=== PATIENT | male | born 1935 | race Caucasian/White ===

== ENCOUNTER 2016-11-21 15:19 | Outpatient (CLI) | payer MEDICARE, OTHER | END 2016-11-21 15:20 | disposition home or self-care (01) | DX: E11.9 Type 2 diabetes mellitus without complications (principal) ==

== ENCOUNTER 2017-01-18 15:04 | Outpatient (CLI) | payer MEDICARE, OTHER | END 2017-01-18 15:05 | disposition home or self-care (01) | LOC: RT 15:04 | PROVIDERS: ATTEND Internal Medicine Cardiovascular Disease | DX: I25.10 Atherosclerotic heart disease of native coronary artery without angina pectoris (principal); I50.9 Heart failure, unspecified; I49.9 Cardiac arrhythmia, unspecified | CPT/HCPCS: 93005 ==

== ENCOUNTER 2017-01-31 12:33 | Outpatient (CLI) | payer MEDICARE, OTHER | END 2017-01-31 12:34 | disposition home or self-care (01) | LOC: DI 12:33 | PROVIDERS: ATTEND Internal Medicine Cardiovascular Disease | DX: I50.9 Heart failure, unspecified (principal); Z95.0 Presence of cardiac pacemaker | CPT/HCPCS: 93306 ==

== ENCOUNTER 2017-06-19 08:26 | Outpatient (CLI) | payer MEDICARE, OTHER ==
[2017-06-19 08:53] LABS: BASOPHILS # (AUTO) 0.1 10^3/uL (0.0-0.1); BILIRUBIN,URINE NEGATIVE (NEGATIVE); EOSINOPHILS # (AUTO) 0.4 10^3/uL (0.0-0.7); EOSINOPHILS % (AUTO) 4.7 %; GLUCOSE, URINE (UA) NEGATIVE (NEGATIVE); HGB - HEMOGLOBIN 13.2 g/dL (14.0-18.0); KETONES,URINE (UA) NEGATIVE (NEGATIVE); LEUKOCYTE ESTERASE, URINE NEGATIVE (NEGATIVE); LYMPHOCYTES # (AUTO) 1.2 10^3/uL (1.5-3.5); LYMPHOCYTES % (AUTO) 15.2 %; MEAN CORPUSCULAR HEMOGLOBIN 31.3 pg (27.0-31.0); MEAN CORPUSCULAR HGB CONC 34.1 g/dL (32.0-36.0); MEAN CORPUSCULAR VOLUME 91.9 fL (80.0-94.0); MEAN PLATELET VOLUME 7.1 fL (7.4-11.4); MONOCYTES # (AUTO) 0.7 10^3/uL (0.0-1.0); MONOCYTES % (AUTO) 8.3 %; NEUTROPHILS # (AUTO) 5.7 10^3/uL (1.5-6.6); NEUTROPHILS % (AUTO) 70.8 %; NITRITE,URINE NEGATIVE (NEGATIVE); OCCULT BLOOD,URINE NEGATIVE (NEGATIVE); PLT - PLATELET COUNT 177 10^3/uL (130-450); PROTEIN,URINE NEGATIVE (NEGATIVE); RED BLOOD COUNT 4.23 10^6/uL (4.70-6.10); RED CELL DISTRIBUTION WIDTH 13.9 % (12.0-15.0); UROBILINOGEN,URINE 0.2 (NORMAL) E.U./dL (NORMAL); WHITE BLOOD COUNT 8.1 x10^3/uL (4.8-10.8)
[2017-06-19 08:55] LABS: CLARITY,URINE CLEAR (CLEAR)
[2017-06-19 09:05] LABS: BACTERIA,URINE Rare /HPF (None Seen); RBC,URINE 0-5 /HPF (0-5); SQUAMOUS EPITHELIAL CELL,UR NONE SEEN (<= Few)
[2017-06-19 09:18] LABS: % IRON SATURATION 16 % (20-50); ALBUMIN 4.3 g/dL (3.2-5.5); ALBUMIN/GLOBULIN RATIO 1.3 (1.0-2.2); ALKALINE PHOSPHATASE 48 IU/L (42-121); ALT ALANINE AMINOTRANSFERASE 25 IU/L (10-60); AST ASPARTATE AMINOTRANSFERASE 23 IU/L (10-42); BILIRUBIN,TOTAL 0.9 mg/dL (0.2-1.0); BUN - BLOOD UREA NITROGEN 41 mg/dL (6-20); CARBON DIOXIDE - CO2 27 mmol/L (21-32); CHLORIDE 103 mmol/L (101-111); CHOL/HDL RATIO 3.7 (<5.0); CHOLESTEROL 133 mg/dL; CREATININE 2.1 mg/dL (0.6-1.2); GFR - MDRD 30 (>89); GLUCOSE 105 mg/dL (70-100); HB2 TOTAL 14.5 g/dL; HDL CHOLESTEROL 36 mg/dL; HEMOGLOBIN A1C 0.99 g/dL; HEMOGLOBIN A1C % 8.4 % (4.6-6.2); IRON 54 ug/dL (45-182); LDL CHOLESTEROL,CALCULATED 77 mg/dL; LDL/HDL RATIO 2.1 (<3.6); SODIUM 139 mmol/L (135-145); TOTAL IRON BINDING CAPACITY 347 ug/dL (250-450); TOTAL PROTEIN 7.6 g/dL (6.7-8.2); TRANSFERRIN 248 mg/dL (180-329); VLDL CHOLESTEROL 20 mg/dL
[2017-06-19 09:29] LABS: THYROID STIMULATING HORMONE 1.85 uIU/mL (0.34-5.60)
[2017-06-19 09:35] LABS: FERRITIN 68.1 ng/mL (23.9-336.2)
== END 2017-06-19 08:27 | disposition home or self-care (01) ==
LOC: LAB 08:26
PROVIDERS: ATTEND Internal Medicine
DX: I13.0 Hypertensive heart and chronic kidney disease with heart failure and stage 1 through stage 4 chronic kidney disease, or unspecified chronic kidney disease (principal); Z79.899 Other long term (current) drug therapy; I48.92 Unspecified atrial flutter; I50.9 Heart failure, unspecified; H26.9 Unspecified cataract; I25.10 Atherosclerotic heart disease of native coronary artery without angina pectoris; E11.22 Type 2 diabetes mellitus with diabetic chronic kidney disease; N18.9 Chronic kidney disease, unspecified; R80.9 Proteinuria, unspecified; M72.0 Palmar fascial fibromatosis [Dupuytren]; E78.3 Hyperchylomicronemia; D50.9 Iron deficiency anemia, unspecified
CPT/HCPCS: 36415; 80053; 80061; 81001; 82728; 83036; 83540; 83721; 83880; 84443; 84466; 85025; 87086

== ENCOUNTER 2017-08-13 15:29 | Outpatient (CLI) | payer MEDICARE, OTHER ==
--- NOTE | 2017-08-13 17:42 | XRAY Report ---
LUMBAR SPINE, THREE VIEWS: 08/13/2017 HISTORY: Back pain. COMPARISON: None. FINDINGS: There is a very subtle lumbar dextroscoliosis. There is loss of the normal lumbar lordosis. No definite anterolisthesis or retrolisthesis. Vertebral body heights are well maintained. There is multilevel degenerative disk space narrowing in the lumbar spine from L1 through S1. Facet joint arthropathy present. Vascular calcification noted. IMPRESSION: MULTILEVEL DEGENERATIVE DISK DISEASE LUMBAR SPINE. LUMBAR SPINAL STENOSIS IS LIKELY PRESENT, BUT COULD BE BETTER ASSESSED BY CT OR MRI. TD: 08/13/2017 17:41 DANIEL
== END 2017-08-13 15:30 | disposition home or self-care (01) ==
LOC: DI 15:29
PROVIDERS: ATTEND Internal Medicine
DX: M51.36 Other intervertebral disc degeneration, lumbar region (principal); M47.896 Other spondylosis, lumbar region
CPT/HCPCS: 72100

== ENCOUNTER 2017-08-20 17:11 | Outpatient (CLI) | payer MEDICARE, OTHER ==
--- NOTE | 2017-08-21 10:04 | XRAY Report ---
RIGHT HIP AND PELVIS: 08/20/2017 CLINICAL INDICATION: Hip pain. FINDINGS: Frontal view of the hips and pelvis and frogleg lateral view of the right hip demonstrate mild osteoarthritis. There is no evidence of acute fracture or dislocation. Vascular calcifications are present. IMPRESSION: MILD RIGHT HIP OSTEOARTHRITIS. TD: 08/21/2017 10:04
== END 2017-08-20 17:12 | disposition home or self-care (01) ==
LOC: DI 17:11
PROVIDERS: ATTEND Internal Medicine
DX: M16.11 Unilateral primary osteoarthritis, right hip (principal)

== ENCOUNTER 2018-01-03 14:26 | Outpatient (CLI) | payer MEDICARE, OTHER ==
[2018-01-03 14:53] LABS: CALCIUM 9.2 mg/dL (8.5-10.3); CREATININE 2.2 mg/dL (0.6-1.2)
[2018-01-03 20:39] LABS: HEMOGLOBIN A1C 0.95 g/dL; HEMOGLOBIN A1C % 8.4 % (4.6-6.2)
== END 2018-01-03 14:27 | disposition home or self-care (01) ==
LOC: LAB 14:26
PROVIDERS: ATTEND Internal Medicine
DX: N18.9 Chronic kidney disease, unspecified (principal); Z79.899 Other long term (current) drug therapy; E11.9 Type 2 diabetes mellitus without complications
CPT/HCPCS: 36415; 80048; 82550; 83036

== ENCOUNTER 2018-08-14 08:09 | Outpatient (CLI) | payer MEDICARE, OTHER ==
[2018-08-14 08:24] LABS: BASOPHILS # (AUTO) 0.1 10^3/uL (0.0-0.1); EOSINOPHILS # (AUTO) 0.4 10^3/uL (0.0-0.7); EOSINOPHILS % (AUTO) 4.4 %; LYMPHOCYTES # (AUTO) 1.3 10^3/uL (1.5-3.5); LYMPHOCYTES % (AUTO) 13.7 %; MEAN CORPUSCULAR HEMOGLOBIN 31.6 pg (27.0-31.0); MEAN CORPUSCULAR HGB CONC 33.7 g/dL (32.0-36.0); MEAN CORPUSCULAR VOLUME 93.8 fL (80.0-94.0); MEAN PLATELET VOLUME 7.1 fL (7.4-11.4); MONOCYTES # (AUTO) 0.7 10^3/uL (0.0-1.0); MONOCYTES % (AUTO) 7.6 %; NEUTROPHILS % (AUTO) 73.3 %; PLT - PLATELET COUNT 175 10^3/uL (130-450); RED BLOOD COUNT 4.43 10^6/uL (4.70-6.10); RED CELL DISTRIBUTION WIDTH 14.2 % (12.0-15.0); WHITE BLOOD COUNT 9.5 x10^3/uL (4.8-10.8)
[2018-08-14 08:43] LABS: HB2 TOTAL 15.4 g/dL; HEMOGLOBIN A1C % 8.1 % (4.6-6.2)
[2018-08-14 08:45] LABS: ALBUMIN 4.7 g/dL (3.2-5.5); ALBUMIN/GLOBULIN RATIO 1.3 (1.0-2.2); ALKALINE PHOSPHATASE 59 IU/L (42-121); ALT ALANINE AMINOTRANSFERASE 32 IU/L (10-60); AST ASPARTATE AMINOTRANSFERASE 31 IU/L (10-42); BILIRUBIN,TOTAL 1.1 mg/dL (0.2-1.0); BUN - BLOOD UREA NITROGEN 40 mg/dL (6-20); CALCIUM 9.3 mg/dL (8.5-10.3); CARBON DIOXIDE - CO2 25 mmol/L (21-32); CHLORIDE 101 mmol/L (101-111); CHOL/HDL RATIO 3.2 (<5.0); CHOLESTEROL 155 mg/dL; CK- CREATINE KINASE 75 IU/L (22-269); GFR - MDRD 32 (>89); GLUCOSE 85 mg/dL (70-100); HDL CHOLESTEROL 49 mg/dL; LDL CHOLESTEROL,CALCULATED 87 mg/dL; LDL/HDL RATIO 1.8 (<3.6); SODIUM 138 mmol/L (135-145); TOTAL PROTEIN 8.4 g/dL (6.7-8.2); VLDL CHOLESTEROL 19 mg/dL
[2018-08-14 08:59] LABS: BILIRUBIN,URINE NEGATIVE (NEGATIVE); GLUCOSE, URINE (UA) NEGATIVE (NEGATIVE); KETONES,URINE (UA) NEGATIVE (NEGATIVE); LEUKOCYTE ESTERASE, URINE NEGATIVE (NEGATIVE); NITRITE,URINE NEGATIVE (NEGATIVE); OCCULT BLOOD,URINE TRACE-LYSE (NEGATIVE); PROTEIN,URINE NEGATIVE (NEGATIVE); UROBILINOGEN,URINE 0.2 (NORMAL) E.U./dL (NORMAL)
[2018-08-14 09:13] LABS: CREATININE,URINE 93.7 mg/dL; MICROALBUM/CREATININE RATIO,UR 114.2 ug/mg (<30.0); MICROALBUMIN,URINE 10.7 mg/dL (0-300.0)
[2018-08-14 09:36] LABS: THYROID STIMULATING HORMONE 1.96 uIU/mL (0.34-5.60)
[2018-08-14 09:42] LABS: CLARITY,URINE CLEAR (CLEAR)
== END 2018-08-14 08:10 | disposition home or self-care (01) ==
LOC: LAB 08:09
PROVIDERS: ATTEND Internal Medicine
DX: I25.10 Atherosclerotic heart disease of native coronary artery without angina pectoris (principal); I48.92 Unspecified atrial flutter; E11.22 Type 2 diabetes mellitus with diabetic chronic kidney disease; N18.9 Chronic kidney disease, unspecified; I13.0 Hypertensive heart and chronic kidney disease with heart failure and stage 1 through stage 4 chronic kidney disease, or unspecified chronic kidney disease; I50.9 Heart failure, unspecified; D64.9 Anemia, unspecified; E78.5 Hyperlipidemia, unspecified; R20.0 Anesthesia of skin; Z79.899 Other long term (current) drug therapy
CPT/HCPCS: 36415; 80053; 80061; 81001; 81003; 82043; 82550; 82570; 82607; 83036; 83721; 84443; 85025; 87086

== ENCOUNTER 2019-03-05 10:33 | Outpatient (CLI) | payer MEDICARE, OTHER | END 2019-03-05 10:34 | disposition home or self-care (01) | LOC: LAB 10:33 | PROVIDERS: ATTEND Internal Medicine | DX: E87.5 Hyperkalemia (principal) | CPT/HCPCS: 36415; 84132 ==

== ENCOUNTER 2019-09-25 08:24 | Outpatient (CLI) | payer MEDICARE, OTHER ==
[2019-09-25 08:50] LABS: BASOPHILS # (AUTO) 0.1 10^3/uL (0.0-0.1); BASOPHILS % (AUTO) 0.6 %; EOSINOPHILS # (AUTO) 0.4 10^3/uL (0.0-0.7); HGB - HEMOGLOBIN 13.9 g/dL (14.0-18.0); LYMPHOCYTES # (AUTO) 1.1 10^3/uL (1.5-3.5); LYMPHOCYTES % (AUTO) 12.7 %; MEAN CORPUSCULAR HEMOGLOBIN 32.6 pg (27.0-31.0); MEAN CORPUSCULAR HGB CONC 33.1 g/dL (32.0-36.0); MEAN CORPUSCULAR VOLUME 98.4 fL (80.0-94.0); MEAN PLATELET VOLUME 8.9 fL (7.4-11.4); MONOCYTES # (AUTO) 0.8 10^3/uL (0.0-1.0); MONOCYTES % (AUTO) 9.3 %; NEUTROPHILS # (AUTO) 6.4 10^3/uL (1.5-6.6); NEUTROPHILS % (AUTO) 72.9 %; PLT - PLATELET COUNT 170 10^3/uL (130-450); RED BLOOD COUNT 4.27 10^6/uL (4.70-6.10); RED CELL DISTRIBUTION WIDTH 13.2 % (12.0-15.0); WHITE BLOOD COUNT 8.7 x10^3/uL (4.8-10.8)
[2019-09-25 09:04] LABS: HB2 TOTAL 14.6 g/dL; HEMOGLOBIN A1C 0.88 g/dL; HEMOGLOBIN A1C % 7.7 % (4.6-6.2)
[2019-09-25 09:09] LABS: % IRON SATURATION 20 % (20-50); ALBUMIN 4.4 g/dL (3.2-5.5); ALBUMIN/GLOBULIN RATIO 1.3 (1.0-2.2); ALKALINE PHOSPHATASE 57 IU/L (42-121); ALT ALANINE AMINOTRANSFERASE 34 IU/L (10-60); AST ASPARTATE AMINOTRANSFERASE 30 IU/L (10-42); BILIRUBIN,TOTAL 1.1 mg/dL (0.2-1.0); BUN - BLOOD UREA NITROGEN 41 mg/dL (6-20); CALCIUM 8.9 mg/dL (8.5-10.3); CARBON DIOXIDE - CO2 29 mmol/L (21-32); CHLORIDE 102 mmol/L (101-111); CHOL/HDL RATIO 4.1 (<5.0); CHOLESTEROL 149 mg/dL; CK- CREATINE KINASE 67 IU/L (22-269); CREATININE 2.1 mg/dL (0.6-1.2); GLUCOSE 83 mg/dL (70-100); HDL CHOLESTEROL 36 mg/dL; IRON 66 ug/dL (45-182); LDL CHOLESTEROL,CALCULATED 93 mg/dL; LDL/HDL RATIO 2.6 (<3.6); SODIUM 138 mmol/L (135-145); TOTAL IRON BINDING CAPACITY 323 ug/dL (250-450); TOTAL PROTEIN 7.7 g/dL (6.7-8.2); TRANSFERRIN 231 mg/dL (180-329); VLDL CHOLESTEROL 20 mg/dL
[2019-09-25 09:19] LABS: THYROID STIMULATING HORMONE 2.1 uIU/mL (0.34-5.60)
[2019-09-25 09:25] LABS: FERRITIN 96.3 ng/mL (23.9-336.2)
== END 2019-09-25 08:25 | disposition home or self-care (01) ==
LOC: LAB 08:24
PROVIDERS: ATTEND Internal Medicine
DX: I13.0 Hypertensive heart and chronic kidney disease with heart failure and stage 1 through stage 4 chronic kidney disease, or unspecified chronic kidney disease (principal); E11.22 Type 2 diabetes mellitus with diabetic chronic kidney disease; I50.9 Heart failure, unspecified; N18.9 Chronic kidney disease, unspecified; Z79.899 Other long term (current) drug therapy; I25.10 Atherosclerotic heart disease of native coronary artery without angina pectoris; I48.92 Unspecified atrial flutter; R00.1 Bradycardia, unspecified; E78.5 Hyperlipidemia, unspecified; D64.9 Anemia, unspecified
CPT/HCPCS: 36415; 80053; 80061; 82550; 82728; 83036; 83540; 83721; 83880; 84443; 84466; 85025

== ENCOUNTER 2021-02-03 08:44 | Outpatient (CLI) | payer MEDICARE, OTHER ==
[2021-02-03 09:03] LABS: BASOPHILS # (AUTO) 0.1 10^3/uL (0.0-0.1); BASOPHILS % (AUTO) 0.6 %; EOSINOPHILS # (AUTO) 0.4 10^3/uL (0.0-0.7); EOSINOPHILS % (AUTO) 4.8 %; HGB - HEMOGLOBIN 13.3 g/dL (14.0-18.0); LYMPHOCYTES # (AUTO) 1.2 10^3/uL (1.5-3.5); LYMPHOCYTES % (AUTO) 14.2 %; MEAN CORPUSCULAR HGB CONC 32.4 g/dL (32.0-36.0); MEAN CORPUSCULAR VOLUME 98.6 fL (80.0-94.0); MEAN PLATELET VOLUME 9.1 fL (7.4-11.4); MONOCYTES # (AUTO) 0.7 10^3/uL (0.0-1.0); MONOCYTES % (AUTO) 8.6 %; NEUTROPHILS # (AUTO) 6.1 10^3/uL (1.5-6.6); NEUTROPHILS % (AUTO) 71.6 %; PLT - PLATELET COUNT 161 10^3/uL (130-450); RED BLOOD COUNT 4.16 10^6/uL (4.70-6.10); RED CELL DISTRIBUTION WIDTH 13.2 % (12.0-15.0); WHITE BLOOD COUNT 8.5 x10^3/uL (4.8-10.8)
[2021-02-03 09:21] LABS: ALBUMIN 4.3 g/dL (3.2-5.5); ALBUMIN/GLOBULIN RATIO 1.2 (1.0-2.2); ALKALINE PHOSPHATASE 57 IU/L (42-121); ALT ALANINE AMINOTRANSFERASE 24 IU/L (10-60); AST ASPARTATE AMINOTRANSFERASE 26 IU/L (10-42); BILIRUBIN,TOTAL 0.8 mg/dL (0.2-1.0); BUN - BLOOD UREA NITROGEN 40 mg/dL (6-20); CALCIUM 9.3 mg/dL (8.5-10.3); CARBON DIOXIDE - CO2 27 mmol/L (21-32); CHLORIDE 105 mmol/L (101-111); CHOL/HDL RATIO 3.5 (<5.0); CHOLESTEROL 142 mg/dL; CK- CREATINE KINASE 67 IU/L (22-269); GFR - MDRD 32 (>89); GLUCOSE 107 mg/dL (70-100); HDL CHOLESTEROL 41 mg/dL; LDL CHOLESTEROL,CALCULATED 86 mg/dL; LDL/HDL RATIO 2.1 (<3.6); POTASSIUM 4.6 mmol/L (3.5-5.0); SODIUM 141 mmol/L (135-145); TOTAL PROTEIN 7.9 g/dL (6.7-8.2); TRIGLYCERIDES 74 mg/dL; VLDL CHOLESTEROL 15 mg/dL
[2021-02-03 09:32] LABS: THYROID STIMULATING HORMONE 1.83 uIU/mL (0.34-5.60)
[2021-02-03 09:40] LABS: MICROALBUMIN,URINE 9.5 mg/dL (0-300.0)
[2021-02-03 13:39] LABS: ESTIMATED AVERAGE GLUCOSE 180 mg/dL (70-100); HEMOGLOBIN A1c% 7.9 % (4.27-6.07)
== END 2021-02-03 08:45 | disposition home or self-care (01) ==
LOC: LAB 08:44
PROVIDERS: ATTEND Internal Medicine
DX: E78.5 Hyperlipidemia, unspecified (principal); I25.10 Atherosclerotic heart disease of native coronary artery without angina pectoris; Z79.899 Other long term (current) drug therapy; I48.92 Unspecified atrial flutter; R00.1 Bradycardia, unspecified; I13.0 Hypertensive heart and chronic kidney disease with heart failure and stage 1 through stage 4 chronic kidney disease, or unspecified chronic kidney disease; E11.22 Type 2 diabetes mellitus with diabetic chronic kidney disease; N18.9 Chronic kidney disease, unspecified; I50.9 Heart failure, unspecified
CPT/HCPCS: 36415; 80053; 80061; 82043; 82550; 82570; 82607; 83036; 83721; 84443; 85025

== ENCOUNTER 2021-08-08 14:51 | Outpatient (CLI) | payer MEDICARE, OTHER ==
[2021-08-08 15:12] LABS: ESTIMATED AVERAGE GLUCOSE 177 mg/dL (70-100); HEMOGLOBIN A1c% 7.8 % (4.27-6.07)
[2021-08-08 15:24] LABS: CALCIUM 9.2 mg/dL (8.5-10.3); CREATININE 2.2 mg/dL (0.6-1.2); POTASSIUM 5.5 mmol/L (3.5-5.0)
== END 2021-08-08 14:52 | disposition home or self-care (01) ==
LOC: LAB 14:51
PROVIDERS: ATTEND Internal Medicine
DX: E11.22 Type 2 diabetes mellitus with diabetic chronic kidney disease (principal); N18.9 Chronic kidney disease, unspecified
CPT/HCPCS: 36415; 80048; 83036

== ENCOUNTER 2022-10-23 10:11 | Outpatient (CLI) | payer MEDICARE, OTHER ==
[2022-10-23 10:24] LABS: BASOPHILS # (AUTO) 0.1 10^3/uL (0.0-0.1); BASOPHILS % (AUTO) 0.5 %; EOSINOPHILS # (AUTO) 0.4 10^3/uL (0.0-0.7); HGB - HEMOGLOBIN 12.7 g/dL (14.0-18.0); LYMPHOCYTES # (AUTO) 1.5 10^3/uL (1.5-3.5); LYMPHOCYTES % (AUTO) 13.9 %; MEAN CORPUSCULAR HEMOGLOBIN 31.7 pg (27.0-31.0); MEAN CORPUSCULAR HGB CONC 31.8 g/dL (32.0-36.0); MEAN CORPUSCULAR VOLUME 99.8 fL (80.0-94.0); MEAN PLATELET VOLUME 9.1 fL (7.4-11.4); MONOCYTES % (AUTO) 9.1 %; NEUTROPHILS # (AUTO) 7.7 10^3/uL (1.5-6.6); PLT - PLATELET COUNT 185 10^3/uL (130-450); RED BLOOD COUNT 4.01 10^6/uL (4.70-6.10); RED CELL DISTRIBUTION WIDTH 13.4 % (12.0-15.0); WHITE BLOOD COUNT 10.6 x10^3/uL (4.8-10.8)
[2022-10-23 10:41] LABS: CREATININE,URINE 34.6 mg/dL; MICROALBUM/CREATININE RATIO,UR 135.8 ug/mg (<30.0); MICROALBUMIN,URINE 4.7 mg/dL (0-300.0)
[2022-10-23 10:42] LABS: ALBUMIN 4.5 g/dL (3.2-5.5); ALBUMIN/GLOBULIN RATIO 1.1 (1.0-2.2); ALKALINE PHOSPHATASE 88 IU/L (42-121); ALT ALANINE AMINOTRANSFERASE 33 IU/L (10-60); AST ASPARTATE AMINOTRANSFERASE 40 IU/L (10-42); BUN - BLOOD UREA NITROGEN 56 mg/dL (6-20); CALCIUM 9.7 mg/dL (8.5-10.3); CARBON DIOXIDE - CO2 27 mmol/L (21-32); CHLORIDE 107 mmol/L (101-111); CHOL/HDL RATIO 2.9 (<5.0); CHOLESTEROL 139 mg/dL; CREATININE 2.5 mg/dL (0.6-1.2); GFR - MDRD 25 (>89); GLUCOSE 94 mg/dL (70-100); HDL CHOLESTEROL 48 mg/dL; LDL CHOLESTEROL,CALCULATED 77 mg/dL; LDL/HDL RATIO 1.6 (<3.6); SODIUM 142 mmol/L (135-145); TOTAL PROTEIN 8.6 g/dL (6.7-8.2); TRIGLYCERIDES 70 mg/dL; VLDL CHOLESTEROL 14 mg/dL
[2022-10-23 12:00] LABS: ESTIMATED AVERAGE GLUCOSE 192 mg/dL (70-100); HEMOGLOBIN A1c% 8.3 % (4.27-6.07)
== END 2022-10-23 10:12 | disposition home or self-care (01) ==
LOC: LAB 10:11
PROVIDERS: ATTEND Internal Medicine
DX: Z00.00 Encounter for general adult medical examination without abnormal findings (principal); I13.0 Hypertensive heart and chronic kidney disease with heart failure and stage 1 through stage 4 chronic kidney disease, or unspecified chronic kidney disease; N18.9 Chronic kidney disease, unspecified; E11.22 Type 2 diabetes mellitus with diabetic chronic kidney disease; I50.9 Heart failure, unspecified; I48.92 Unspecified atrial flutter; I25.10 Atherosclerotic heart disease of native coronary artery without angina pectoris; E78.5 Hyperlipidemia, unspecified; D50.9 Iron deficiency anemia, unspecified
CPT/HCPCS: 36415; 80053; 80061; 82043; 82570; 83036; 83721; 84443; 85025

== ENCOUNTER 2023-05-10 14:51 | Outpatient (CLI) | payer MEDICARE, OTHER ==
[2023-05-10 15:19] LABS: CALCIUM 9.6 mg/dL (8.5-10.3); CREATININE 2.2 mg/dL (0.6-1.3); POTASSIUM 4.7 mmol/L (3.5-4.5)
[2023-05-10 21:07] LABS: ESTIMATED AVERAGE GLUCOSE 186 mg/dL (70-100); HEMOGLOBIN A1c% 8.1 % (4.27-6.07)
== END 2023-05-10 14:52 | disposition home or self-care (01) ==
LOC: LAB 14:51
PROVIDERS: ATTEND Internal Medicine
DX: E11.22 Type 2 diabetes mellitus with diabetic chronic kidney disease (principal); N18.9 Chronic kidney disease, unspecified
CPT/HCPCS: 36415; 80048; 83036

== ENCOUNTER 2023-11-21 09:39 | Outpatient (CLI) | payer MEDICARE, OTHER ==
[2023-11-21 09:57] LABS: BASOPHILS # (AUTO) 0.1 10^3/uL (0.0-0.1); BASOPHILS % (AUTO) 0.7 %; EOSINOPHILS # (AUTO) 0.5 10^3/uL (0.0-0.7); EOSINOPHILS % (AUTO) 5.3 %; HCT - HEMATOCRIT 34.4 % (42.0-52.0); HGB - HEMOGLOBIN 10.6 g/dL (14.0-18.0); LYMPHOCYTES # (AUTO) 1.3 10^3/uL (1.5-3.5); LYMPHOCYTES % (AUTO) 14.4 %; MEAN CORPUSCULAR HEMOGLOBIN 31.5 pg (27.0-31.0); MEAN CORPUSCULAR HGB CONC 30.8 g/dL (32.0-36.0); MEAN CORPUSCULAR VOLUME 102.1 fL (80.0-94.0); MEAN PLATELET VOLUME 9.3 fL (7.4-11.4); MONOCYTES # (AUTO) 0.9 10^3/uL (0.0-1.0); MONOCYTES % (AUTO) 10.1 %; NEUTROPHILS # (AUTO) 6.3 10^3/uL (1.5-6.6); NEUTROPHILS % (AUTO) 69.1 %; PLT - PLATELET COUNT 169 10^3/uL (130-450); RED BLOOD COUNT 3.37 10^6/uL (4.70-6.10); RED CELL DISTRIBUTION WIDTH 14.2 % (12.0-15.0)
[2023-11-21 09:58] LABS: BILIRUBIN,URINE NEGATIVE (NEGATIVE); GLUCOSE, URINE (UA) NEGATIVE (NEGATIVE); KETONES,URINE (UA) NEGATIVE (NEGATIVE); LEUKOCYTE ESTERASE, URINE NEGATIVE (NEGATIVE); NITRITE,URINE NEGATIVE (NEGATIVE); OCCULT BLOOD,URINE TRACE-INTA (NEGATIVE); PROTEIN,URINE NEGATIVE (NEGATIVE); UROBILINOGEN,URINE 0.2 (NORMAL) E.U./dL (NORMAL)
[2023-11-21 10:10] LABS: BACTERIA,URINE None Seen /HPF (None Seen); CLARITY,URINE CLEAR (CLEAR); RBC,URINE None Seen /HPF (0-5); SQUAMOUS EPITHELIAL CELL,UR NONE SEEN (<= Few); WBC,URINE 0-3 /HPF (0-3)
[2023-11-21 10:14] LABS: ALBUMIN 4.6 g/dL (3.2-5.5); ALBUMIN/GLOBULIN RATIO 1.2 (1.0-2.2); ALKALINE PHOSPHATASE 142 IU/L (42-121); ALT ALANINE AMINOTRANSFERASE 17 IU/L (10-60); AST ASPARTATE AMINOTRANSFERASE 23 IU/L (10-42); BILIRUBIN,TOTAL 1.1 mg/dL (0.2-1.0); BUN - BLOOD UREA NITROGEN 43 mg/dL (6-20); CALCIUM 9.7 mg/dL (8.5-10.3); CARBON DIOXIDE - CO2 25 mmol/L (21-32); CHLORIDE 105 mmol/L (101-111); CHOL/HDL RATIO 2.3 (<5.0); CHOLESTEROL 105 mg/dL; CREATININE 2.2 mg/dL (0.6-1.3); GFR - MDRD 28 (>89); GLUCOSE 99 mg/dL (74-104); HDL CHOLESTEROL 46 mg/dL; LDL CHOLESTEROL,CALCULATED 46 mg/dL; POTASSIUM 4.4 mmol/L (3.5-4.5); SODIUM 138 mmol/L (135-145); TOTAL PROTEIN 8.4 g/dL (6.4-8.9); TRIGLYCERIDES 63 mg/dL; VLDL CHOLESTEROL 13 mg/dL
[2023-11-21 10:25] LABS: PSA TOTAL 8.119 ng/mL (0.000-2.000); THYROID STIMULATING HORMONE 2.51 uIU/mL (0.34-5.60)
[2023-11-21 10:41] LABS: ESTIMATED AVERAGE GLUCOSE 160 mg/dL (70-100); HEMOGLOBIN A1c% 7.2 % (4.27-6.07)
== END 2023-11-21 09:40 | disposition home or self-care (01) ==
LOC: LAB 09:39
PROVIDERS: ATTEND Internal Medicine
DX: Z00.00 Encounter for general adult medical examination without abnormal findings (principal); I13.0 Hypertensive heart and chronic kidney disease with heart failure and stage 1 through stage 4 chronic kidney disease, or unspecified chronic kidney disease; E11.22 Type 2 diabetes mellitus with diabetic chronic kidney disease; I50.9 Heart failure, unspecified; N18.9 Chronic kidney disease, unspecified; D64.9 Anemia, unspecified; R80.9 Proteinuria, unspecified; I48.92 Unspecified atrial flutter; H26.9 Unspecified cataract; I25.10 Atherosclerotic heart disease of native coronary artery without angina pectoris; Z86.010 Personal history of colon polyps; E78.5 Hyperlipidemia, unspecified; R20.0 Anesthesia of skin
CPT/HCPCS: 36415; 80053; 80061; 81001; 82607; 83036; 83721; 83880; 84153; 84154; 84443; 85025; 87086

== ENCOUNTER 2024-10-03 14:24 | Inpatient (IN) ==
--- NOTE | 2024-10-03 14:43 | ED Physician Documentation ---
History of Present Illness Stated complaint Stated Complaint: GEN WEAKNESS Chief complaint Chief Complaint: General History obtained from History obtained from: Patient, Family and EMS Additonal information Additional information: 89YO MALE WITH HX CABG, [facility] AICD, DM ON INSULIN STARTED TAMSULOSIN 1 WEEK AGO SEVERAL FALLS WITH DIZZY EPISODES SINCE FELL YEST, HIT BACK OF HEAD AND LOW BACK PAIN WITH WALKING TO LOW BACK TODAY SYNCOPIZED AFTER SHOWER. NO INJ TODAY NO CP/SOA PERW LASTED 10 SEC Meds/Allgy Home Medications Ambulatory Orders Medication Instructions Recorded Confirmed aspirin 81 mg tablet,delayed 81 mg PO DAILY 12/29/12 0 12/29/12 release simvastatin 40 mg tablet DAILY 12/29/12 12/29/12 insulin glargine 100 unit/mL (3 20 unit subcut QPM 10/03/24 mL) subcutaneous pen (Lantus Solostar U-100 Insulin) metoprolol succinate 100 mg 100 mg PO BID 10/03/24 tablet,extended release 24 hr tamsulosin 0.4 mg capsule (Flomax) 0.4 mg PO DAILY 10/03/24 torsemide 20 mg tablet 20 mg PO DAILY 10/03/2409/12 Allergies Allergies Allergy/AdvReac Type Severity Reaction Status Date / Time ivp dye Allergy Intermediate Rash Uncoded 12/29/12 01:19 PFSH Active Problems All Active Problems (Updated 10/03/24 @ 18:15 by Wilfredo Appiah MD) Mass of sinus (Acute) Cardiomyopathy (Acute) Syncope (Acute) GI bleed (Acute) Medical History Medical History (Updated 10/03/24 @ 18:15 by Wilfredo Appiah MD) Pacemaker Diabetes Social History Social History Smoking Status: Never smoker Relationship: DPOA Do you feel safe in your home environment?: Yes Suffered physical, verbal, emotional, or financial abuse?: No History of Abuse: No Frequency: Occasional POLST Patient has POLST: Yes POLST Status: Full Code Exam Exam Vital Signs: Vital Signs x48h Temp Pulse Resp BP Pulse Ox 10/03/24 16:47 63 16 100/50 L 95 10/03/24 14:25 35.7 C L 61 18 99/47 L 99 Constitutional normal general appearance and no apparent distress HENMT BRUISE R CHEEK, NO TTP Eyes PERRL Neck/C-Spine cervical spine nontender Respiratory breath sounds equal bilaterally, normal respiratory effort and clear to auscultation bilaterally Cardiovascular normal heart rate noted, regular rhythm noted and no gallop Gastrointestinal abdomen soft to palpation and nontender to palpation Back/Pelvis BRUISE/ABRASION R LATERAL POSTERIOR THORAX Neurology GCS 15 Psychiatry oriented x3 Results Vitals Vitals: Vital Signs - 24 hr 10/03/24 14:25 10/03/24 16:47 Temperature 35.7 C L Temperature Source Temporal Artery Scan Pulse Rate 61 63 Respiratory Rate 18 16 Blood Pressure 99/47 L 100/50 L O2 Saturation 99 95 O2 Source Room air Room air Pain Intensity 0 Oxygen O2 Source Room air EKG (time done) 1501: EKG releavant findings:: EKG personally interpreted by author of this note. Relevant findings are: AV sense/paced pacer Labs Labs: Microbiology 10/03/24 15:40 Occult Blood - Final Stool Laboratory Tests 10/03/24 10/03/24 10/03/24 14:49 15:49 17:07 WBC 11.4 H RBC 2.50 L Hgb 8.2 L 8.2 L Hct 25.9 L 26.3 L MCV 103.6 H MCH 32.8 H MCHC 31.7 L RDW 14.6 Plt Count 151 MPV 9.5 Neut # (Auto) 9.4 H Lymph # (Auto) 0.6 L [place] # (Auto) 1.1 H Eos # (Auto) 0.3 Baso # (Auto) 0.0 Absolute Nucleated RBC 0.00 Nucleated RBC % 0.0 Sodium 133 L Potassium 5.3 H Chloride 103 Carbon Dioxide 21 Anion Gap 9.0 BUN 65 H Creatinine 2.4 H Estimated GFR (MDRD) 26 L Glucose 219 H Calcium 8.4 L Total Bilirubin 1.2 H AST 18 ALT 14 Alkaline Phosphatase 102 Troponin I High Sens 30.4 H* 30.6 H* B-Natriuretic Peptide 366 H Total Protein 6.2 L Albumin 3.6 Globulin 2.6 Albumin/Globulin Ratio 1.4 Blood Type O POSITIVE Blood Type Recheck O POSITIVE Antibody Screen NEGATIVE Rads (name of study) CT HEAD: Relevant Findings:: Final report received and EMP independent interpretation of test (NAD BUT ETHMOIDAL MASS) CT C SPINE: Relevant Findings:: Final report received and EMP independent interpretation of test (NAD) CT CHEST: Relevant Findings:: Final report received and EMP independent interpretation of test (Moderate pulmonary edema with moderate to large pleural effusions) CT L SPINE: Relevant Findings:: Final report received and EMP independent interpretation of test Interpretation: 1. No acute compression fracture. 2. No lytic or blastic bony lesions. 3. Moderate canal stenosis at L3-L4 and L4-L5. 4. Marked bladder hypertrophy. Cannot exclude a coexisting base of bladder mass. 5. Bilateral pleural effusions, right greater than left PD Medical Decision Making ED course ED course: This is an 89-year-old gentleman with chronic heart failure, AICD in place who has had dizzy episodes with falls and some injuries and today had full syncope. Workup demonstrates a CBC showing acute on chronic macrocytic anemia, mild leukocytosis, he has mild CEE on CKD (his GFR today is 26, a year ago was 28), modestly elevated BNP but also in the range of prior value, We were able to interrogate his pacemaker and I took a call from the [employer] who told me there were no episodes of arrhythmias. There is potentially a problem with his atrial lead but that would not cause any syncope or anything and he has about 5 months left on the battery. Echocardiogram from 2017 reviewed. He had an EF of 35 to 40% with global hypokinesis, mild RV enlargement, mild TR with mildly elevated right heart pressures. Subsequently I did notice that since he has the acute on chronic anemia I did a rectal exam and was fairly dark albeit not obviously bloody. It was guaiac positive. We did a repeat H&H after 2 hours and it was flat and his troponin was flat as well. He was extensively imaged without traumatic findings. The incidental findings were discussed with patient and . 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 We discussed the large prostate and likely bladder outlet obstruction with recommendation to follow-up with urologist. I spoke with Dr. Mejía, he will see him in scope if needed but recommends PPI plus Carafate for now. Spoke with NIMCO Lopes for observation at 6:33 PM. The patient and family are counseled as to the diagnosis and need for admission. This document was made in part using voice recognition software, while efforts are made to proofread this document, sound alike an grammatical errors may occur. Discharge Plan Discharge Patient Disposition: ED Place in Observation Condition: Stable Clinical Impression: GI bleed, Syncope, Cardiomyopathy, Mass of sinus Prescriptions: No Action simvastatin 40 MG tablet DAILY metoprolol succinate 50 MG tablet extended release 24 hr 50 mg PO BID metformin 500 MG tablet 500 mg PO BID glipizide 10 MG tablet BID aspirin 81 MG tablet,delayed release (DR/EC) 81 mg PO DAILY lisinopril 10 MG tablet DAILY Print Language: Frisian Stand Alone Forms: PCP List
[2024-10-03] MEDS: SODIUM CHLORIDE 0.9% 1,000 ML IV STA (14:52)
[2024-10-03 14:54] LABS: BASOPHILS % (AUTO) 0.4 %; EOSINOPHILS # (AUTO) 0.3 10^3/uL (0.0-0.7); EOSINOPHILS % (AUTO) 2.8 %; HCT - HEMATOCRIT 25.9 % (42.0-52.0); HGB - HEMOGLOBIN 8.2 g/dL (14.0-18.0); LYMPHOCYTES # (AUTO) 0.6 10^3/uL (1.5-3.5); MEAN CORPUSCULAR HEMOGLOBIN 32.8 pg (27.0-31.0); MEAN CORPUSCULAR HGB CONC 31.7 g/dL (32.0-36.0); MEAN CORPUSCULAR VOLUME 103.6 fL (80.0-94.0); MEAN PLATELET VOLUME 9.5 fL (7.4-11.4); MONOCYTES # (AUTO) 1.1 10^3/uL (0.0-1.0); MONOCYTES % (AUTO) 9.5 %; NEUTROPHILS # (AUTO) 9.4 10^3/uL (1.5-6.6); NEUTROPHILS % (AUTO) 81.8 %; PLT - PLATELET COUNT 151 10^3/uL (130-450); RED CELL DISTRIBUTION WIDTH 14.6 % (12.0-15.0); WHITE BLOOD COUNT 11.4 x10^3/uL (4.8-10.8)
[2024-10-03 15:15] LABS: ALBUMIN 3.6 g/dL (3.2-5.5); ALBUMIN/GLOBULIN RATIO 1.4 (1.0-2.2); BILIRUBIN,TOTAL 1.2 mg/dL (0.2-1.0); CALCIUM 8.4 mg/dL (8.5-10.3); CREATININE 2.4 mg/dL (0.6-1.3); POTASSIUM 5.3 mmol/L (3.5-4.5); TOTAL PROTEIN 6.2 g/dL (6.4-8.9)
[2024-10-03 15:25] LABS: TROPONIN I HIGH SENSITIVITY 30.4 ng/L (2.3-19.7)
[2024-10-03 17:11] LABS: HCT - HEMATOCRIT 26.3 % (42.0-52.0); HGB - HEMOGLOBIN 8.2 g/dL (14.0-18.0)
--- NOTE | 2024-10-03 18:07 | CT Report ---
PROCEDURE: CT Chest WO INDICATIONS: BACK INJ TECHNIQUE: A CT scan of the chest was performed. Intravenous contrast media was not administered. Images were recorded and evaluated at appropriate window settings. Reformats: axial MIP of the chest, coronal and sagittal. For radiation dose reduction, the following was used: automated exposure control, adjustment of mA and/or kV according to patient size. COMPARISON: None. FINDINGS: Image quality: Suboptimal evaluation due to motion artifact and metallic artifact. Chest wall and lower neck: No thyroid nodule which requires sonographic follow up. No axillary or supraclavicular adenopathy by size. Left chest wall generator with cardiac leads. Lungs and pleura: Moderate to large pleural effusions. Pleural thickening is present. Central bronchial thickening. Bibasilar atelectasis. Mediastinum: Heart size is enlarged. No pericardial effusion. No large vessel abnormality. No mediastinal adenopathy by size criteria. Bones: No aggressive osseous abnormality. Diffuse idiopathic skeletal hyperostosis. Upper Abdomen: Unremarkable. IMPRESSION: No displaced fracture or pneumothorax. Moderate pulmonary edema with moderate to large pleural effusions. Reviewed by: Colin Cabrera MD on 10/03/2024 6:06 PM PDT Approved by: Colin Cabrera MD on 10/03/2024 6:06 PM PDT Station ID: [id number]
--- NOTE | 2024-10-03 18:10 | CT Report ---
PROCEDURE: CT Head WO INDICATIONS: HEAD INJ TECHNIQUE: CT of the head was performed, without intravenous contrast. Reformats: Coronal and sagittal. For radiation dose reduction, the following was used: automated exposure control, adjustment of mA and/or kV according to patient size. COMPARISON: None. FINDINGS: Image quality: Diagnostic. CSF spaces: Basal cisterns are patent. No extra-axial fluid collections. Ventricles are normal in size and shape. Brain: No midline shift. No intracranial mass effect or hemorrhage. Young- white matter interface is normal. No significant periventricular white matter hypoattenuation or volume loss. Skull and face: There is a defect in the calvarium in the right anterior frontal region immediately above the orbit in which there is absence of the outer table. There is associated soft tissue present within the right ethmoids. Question mass. There is loss of the superior wall of the right orbit. Sinuses: Visualized sinuses and mastoids are clear. IMPRESSION: No acute intracranial pathology. There is an abnormality involving the superior wall of the right orbit and anterior frontal bone with deficiency of bone and associated soft tissue mass in the right ethmoids. This is of uncertain etiology and chronicity. Comment: Recommend nonemergent brain MRI with and without contrast. Reviewed by: Jason Noland MD on 10/03/2024 6:09 PM PDT Approved by: Jason Noland MD on 10/03/2024 6:09 PM PDT Station ID: [id number]
--- NOTE | 2024-10-03 18:11 | CT Report ---
PROCEDURE: CT Cervical Spine WO INDICATIONS: NECK INJ TECHNIQUE: Noncontrast images acquired from the skull base to the top of T1 level. Sagittal and coronal reformats were then constructed. For radiation dose reduction, the following was used: automated exposure control, adjustment of mA and/or kV according to patient size. COMPARISON: CT chest from the same date, which includes the upper thoracic region.. FINDINGS: Image quality: Excellent. Bones: No fractures or dislocations. Cervical spondylitic change Visualized superior ribs are intact. Soft tissues: Prevertebral soft tissues are normal in thickness. No paravertebral hematomas. No apical pneumothoraces. IMPRESSION: No acute, displaced fracture or traumatic subluxation. Cervical spondylosis. Reviewed by: Jason Noland MD on 10/03/2024 6:10 PM PDT Approved by: Jason Noland MD on 10/03/2024 6:10 PM PDT Station ID: [id number]
--- NOTE | 2024-10-03 18:16 | CT Report ---
PROCEDURE: CT Lumbar Spine WO INDICATIONS: BACK INJ TECHNIQUE: Noncontrast images acquired from the T12 level to the sacrum. Sagittal and coronal reformats were constructed. For radiation dose reduction, the following was used: automated exposure control, adjustment of mA and/or kV according to patient size. COMPARISON: CT chest from the same date. FINDINGS: Image quality: Excellent. Bones: There is normal bony alignment. No acute vertebral body compression fractures. No suspicious lytic or blastic bony lesions. No pars defects. Diffuse lumbar degenerative change. Findings include moderate canal stenosis at L3-L4 and L4-L5. Soft tissues: There is marked enlargement of the prostate. Cannot exclude excluded a coexisting base of bladder mass. There are bilateral pleural effusions, right greater than left IMPRESSION: 1. No acute compression fracture. 2. No lytic or blastic bony lesions. 3. Moderate canal stenosis at L3-L4 and L4-L5. 4. Marked bladder hypertrophy. Cannot exclude a coexisting base of bladder mass. 5. Bilateral pleural effusions, right greater than left Reviewed by: Jason Noland MD on 10/03/2024 6:15 PM PDT Approved by: Jason Noland MD on 10/03/2024 6:15 PM PDT Station ID: [id number]
--- NOTE | 2024-10-03 18:34 | PHARMACY PROGRESS NOTE ---
Best Possible Medication History Admit Date and Time: Home Medications Medication Instructions Recorded Confirmed Type aspirin 81 mg tablet,delayed 81 mg PO DAILY 12/29/12 0 10/03/24 History release simvastatin 40 mg tablet 40 mg PO QPM 12/29/12 History insulin glargine 100 unit/mL (3 20 unit subcut QPM 10/03/24 History mL) subcutaneous pen (Lantus Solostar U-100 Insulin) metoprolol succinate 100 mg 100 mg PO BID 10/03/24 History tablet,extended release 24 hr tamsulosin 0.4 mg capsule (Flomax) 0.4 mg PO DAILY 10/03/24 History torsemide 20 mg tablet 20 mg PO DAILY 10/03/2409/12 History Processed by: Pharmacy Medications reviewed in ED?: Yes Medication History completed: Yes Patient Interview: Completed Secondary Source(s): Pharmacy records and Insurance records [facility] Statement: As the person ultimately responsible for medication therapy, providers are able to order a medication from an existing home medication list in [facility] via the "Reconcile Routine" prior to Confirmation of that medication by production support engineer. Such practice is discouraged except when the physician, in their clinical judgment, deems that a medical need exists for a medication without regard to previous use.
[2024-10-03] MEDS: SUCRALFATE 1 GM/10 ML UDC PO STA ×2 (18:47→19:53)
[2024-10-03] MEDS: PANTOPRAZOLE 40 MG VIAL IVP STA (18:47)
[2024-10-03] MEDS ORDERED: ONDANSETRON 4 MG/2 ML VIAL IVP PRN (20:25)
--- NOTE | 2024-10-03 20:51 | HISTORY & PHYSICAL EXAMINATION ---
Chief Complaint Chief Complaint Chief Complaint: Dizziness and falls History of Present Illness Admitted From Admitted From:: Home with History Obtained From History obtained from: Patient interview History of Present Illness HPI Comment/Other: 89-year-old male PMH significant for CABG, [place] AICD, insulin-dependent diabetes, BPH who started on tamsulosin 1 week ago. He has had several episodes of dizziness with falls. Yesterday, hit the back of his head and his low back. He denies fever, chills, chest pain, shortness of breath, nausea and vomiting. He does report dark stools. He also had an episode of syncope after shower today that lasted 10 seconds. In the ER, his pacemaker was interrogated without abnormality. Troponin elevated at 30.4, repeat 30.6. BNP is mildly elevated from November of last year. Creatinine is 2.4, it was 2.2 last November. Sodium 133, potassium 5.3. His hemoglobin is 8.2, which is a noticeable drop from the 10.6 from last November. Repeat hemoglobin remained consistent at 8.2. Surgery was contacted out of concern for GI bleed, who recommended overnight observation for continued trending of hemoglobins and transfusion if necessary. Hospitalist was contacted for observation Meds/Allgy Home Medications Ambulatory Orders Medication Instructions Recorded Confirmed aspirin 81 mg tablet,delayed 81 mg PO DAILY 12/29/12 0 10/03/24 release simvastatin 40 mg tablet 40 mg PO QPM 12/29/12 insulin glargine 100 unit/mL (3 20 unit subcut QPM 10/03/24 mL) subcutaneous pen (Lantus Solostar U-100 Insulin) metoprolol succinate 100 mg 100 mg PO BID 10/03/24 tablet,extended release 24 hr tamsulosin 0.4 mg capsule (Flomax) 0.4 mg PO DAILY 10/03/24 torsemide 20 mg tablet 20 mg PO DAILY 10/03/2409/12 Allergies Allergies Allergy/AdvReac Type Severity Reaction Status Date / Time ivp dye Allergy Intermediate Rash Uncoded 12/29/12 01:19 [facility] Active Problems All Active Problems (Updated 10/03/24 @ 18:15 by Wilfredo Appiah MD) Mass of sinus (Acute) Cardiomyopathy (Acute) Syncope (Acute) GI bleed (Acute) Medical History Medical History (Updated 10/03/24 @ 18:15 by Wilfredo Appiah MD) Pacemaker Diabetes Social History Social History Smoking Status: Never smoker Relationship: DPOA Do you feel safe in your home environment?: Yes Suffered physical, verbal, emotional, or financial abuse?: No History of Abuse: No Frequency: Occasional POLST Patient has POLST: Yes POLST Status: Full Code Review of Systems Status of ROS: 10 or more systems reviewed and unremarkable except as noted in history and below Constitutional Denies: Fever or Chills Cardiovascular Denies: Irregular heart rate, chest pain, palpitations, edema or shortness of breath with exertion Respiratory Denies: Shortness of breath Gastrointestinal Reports: Melena; Denies: Abdominal pain, Nausea or Vomiting Genitourinary Reports: Difficulty urinating Musculoskeletal Reports: Back pain Neurological Reports: Dizziness Exam Exam Vital Signs: Vital Signs x48h Temp Pulse Resp BP Pulse Ox 10/03/24 19:07 63 20 110/54 L 94 10/03/24 18:49 64 21 110/54 L 96 10/03/24 16:47 63 16 100/50 L 95 10/03/24 14:25 35.7 C L 61 18 99/47 L 99 Constitutional normal general appearance and no apparent distress HENMT normocephalic Bruise on right cheekbone Eyes PERRL Neck/C-Spine visual inspection normal Lymph no lymphadenopathy noted Chest Bruise on chest Respiratory breath sounds equal bilaterally and normal respiratory effort Cardiovascular normal heart rate noted Paced rhythm on telemetry Gastrointestinal abdomen normal to inspection and abdomen soft to palpation Extremities normal to inspection Neurology GCS 15 Psychiatry oriented x3 Skin Bruising to right cheekbone, small bruise on chest, bruise on back Conclusion/Plan Problem List (1) Syncope: Plan: Syncope possibly secondary to GI bleed Fall precautions Echocardiogram (2) GI bleed: Plan: Trend hemoglobin every 8 hours Surgery consulted by ER provider, they will assist if needed Transfuse to keep hemoglobin above 8 given his history of ECMO Protonix, Carafate Plan Placed in observation Full code His is a surrogate decision maker Lab Results Lab results reviewed: Yes 10/03/24 17:07 10/03/24 14:49 Diagnostic Imaging Results Diagnostic Imaging Results: positive Final report reviewed Diagnostic Imaging Results Comments: See report for CT head, chest, C-spine, L-spine. Abnormality involving superior wall of right orbit, patient states that he has had this for some time. Moderate pulmonary edema, moderate to large pleural effusions. No fracture in C-spine or L-spine Core Measures Anticipated LOS I expect patient to be DC'd or transferred within 96 hours.: Yes DVT/VTE - Prophylaxis VTE/DVT Device ordered at admit?: Yes
[2024-10-03 22:12] LABS: HCT - HEMATOCRIT 26.7 % (42.0-52.0); HGB - HEMOGLOBIN 8.4 g/dL (14.0-18.0)
[2024-10-03] MEDS: PANTOPRAZOLE 40 MG VIAL IVP SCH (22:21)
[2024-10-04] MEDS: SODIUM CHLORIDE FLUSH 0.9% 10 ML SYRINGE IVP SCH (00:42)
[2024-10-04 06:22] LABS: HCT - HEMATOCRIT 26.3 % (42.0-52.0); HGB - HEMOGLOBIN 8.2 g/dL (14.0-18.0)
[2024-10-04 06:23] LABS: ABSOLUTE RETICS # AUTO 0.09 10^6/uL (0.020-0.110); RED BLOOD COUNT 2.45 10^6/uL (4.70-6.10); RETICULOCYTE COUNT % (AUTO) 3.67 % (0.5-2.3)
[2024-10-04 06:56] LABS: FERRITIN 43.4 ng/mL (23.9-336.2)
[2024-10-04] MEDS: INSULIN LISPRO 300 UNIT/3 ML PEN SUBQ SCH (07:59)
[2024-10-04 09:29] LABS: HCT - HEMATOCRIT 25.9 % (42.0-52.0); MEAN CORPUSCULAR HEMOGLOBIN 32.7 pg (27.0-31.0); MEAN CORPUSCULAR HGB CONC 30.9 g/dL (32.0-36.0); MEAN CORPUSCULAR VOLUME 105.7 fL (80.0-94.0); MEAN PLATELET VOLUME 10.4 fL (7.4-11.4); RED BLOOD COUNT 2.45 10^6/uL (4.70-6.10); RED CELL DISTRIBUTION WIDTH 14.9 % (12.0-15.0); WHITE BLOOD COUNT 11.5 x10^3/uL (4.8-10.8)
[2024-10-04 09:51] LABS: CALCIUM 8.3 mg/dL (8.5-10.3); CREATININE 2.6 mg/dL (0.6-1.3); POTASSIUM 5.2 mmol/L (3.5-4.5)
[2024-10-04] MEDS: SODIUM ZIRCONIUM CYCLOSILICATE 5 GM PACKET PO SCH (11:45)
[2024-10-04] MEDS ORDERED: FERRIC GLUCONATE 62.5 MG/5 ML VIAL IVP ONE (12:46)
[2024-10-04] MEDS: FERRIC GLUCONATE 125 MG in SODIUM CHLORIDE 0.9% 100ML 100 ML IV ONE (13:29)
--- NOTE | 2024-10-04 14:06 | PROVIDER PROGRESS NOTE ---
Subjective Prog Note Date Prog Note Date: 10/04/24 Subjective Pt reports feeling: No change Current Medications Current Medications Current Medications: Current Medications Generic Name Dose Route Start Last Admin Trade Name Freq PRN Reason Stop Dose Admin Acetaminophen 650 mg 10/03/24 20:25 Acetaminophen 325 Mg Tablet PO Q4HR PRN Pain 1 to 4, or Fever Atorvastatin Calcium 20 mg 10/04/24 21:00 Atorvastatin 10 Mg Tablet PO QPM JORDIN Ferric Sodium Gluconate 110 mls @ 100 mls/hr 10/04/24 14:00 10/04/24 13:29 Complex 125 mg/ Sodium IV 10/04/24 15:05 100 mls/hr Chloride ONCE ONE Administration Insulin Glargine-yfgn 20 unit 10/04/24 21:00 Insulin Glargine-Yfgn 300 Unit/3 Ml Pen SUBQ QPM JORDIN Insulin Human Lispro 1 - 5 unit 10/04/24 08:00 10/04/24 11:58 Insulin Lispro 300 Unit/3 Ml Pen SUBQ 3 unit 0800,1200,1700,2100 JORDIN Administration Protocol Metoprolol Succinate 100 mg 10/04/24 21:00 Metoprolol Succinate 50 Mg Tablet PO BID JORDIN Ondansetron HCl 4 mg 10/03/24 20:25 Ondansetron 4 Mg/2 Ml Vial IVP Q6HR PRN Nausea / Vomiting Pantoprazole Sodium 40 mg 10/03/24 21:00 10/04/24 08:01 Pantoprazole 40 Mg Vial IVP 40 mg BID JORDIN Administration Sodium Chloride 10 ml 10/03/24 20:25 Sodium Chloride Flush 0.9% 10 Ml Syringe IVP PRN PRN NEEDED PER PROVIDER ORDERS Sodium Chloride 10 ml 10/04/24 01:00 10/04/24 08:01 Sodium Chloride Flush 0.9% 10 Ml Syringe IVP 10 ml 0100,0900,1700 JORDIN Administration Sodium Zirconium Cyclosilicate 10 gm 10/04/24 11:00 10/04/24 11:45 Sodium Zirconium Cyclosilicate 5 Gm Packet PO 10 gm BID JORDIN Administration Objective Vital Signs/Intake & Output Reviewed Vital Signs: Yes Vital Signs: Vital Signs x48h Temp Pulse Resp BP Pulse Ox 10/04/24 12:45 36.4 C L 65 20 102/53 L 95 10/04/24 08:07 36.5 C 66 18 106/52 L 94 Intake & Output: Intake & Output 10/01/24 10/02/24 10/03/24 10/04/24 23:59 23:59 23:59 23:59 Intake Total 1200 / 1200 660 / 660 Balance 1200 / 1200 660 / 660 Weight (kg) 66 kg Objective General Appearance: positive No acute distress and Alert Eyes Bilateral: positive Normal inspection and PERRL ENT: positive ENT inspection nml Neck: positive Nml inspection Respiratory: positive Chest non-tender Cardiovascular: positive Regular rate & rhythm Abdomen: positive Non-tender Skin: positive Color nml Extremities: positive Non-tender Neurologic/Psychiatric: positive Oriented x3 Lab Results 10/04/24 05:31 10/04/24 05:31 Other Labs: Lab Results x24hrs 10/04/24 10/04/24 10/04/24 Range/Units 11:53 07:46 05:31 WBC (4.8-10.8) x10^3/uL RBC (4.70-6.10) 10^6/uL Hgb (14.0-18.0) g/dL Hct 25.9 L (42.0-52.0) % MCV 105.7 H (80.0-94.0) fL MCH 32.7 H (27.0-31.0) pg MCHC 30.9 L (32.0-36.0) g/dL RDW 14.9 (12.0-15.0) % Plt Count 168 (130-450) 10^3/uL MPV 10.4 (7.4-11.4) fL Reticulocyte % (Auto) 3.67 H (0.5-2.3) % Neut # (Auto) (1.5-6.6) 10^3/uL Lymph # (Auto) (1.5-3.5) 10^3/uL [place] # (Auto) (0.0-1.0) 10^3/uL Eos # (Auto) (0.0-0.7) 10^3/uL Baso # (Auto) (0.0-0.1) 10^3/uL Absolute Nucleated RBC x10^3/uL Nucleated RBC % /100WBC Absolute Retic 0.090 (0.020-0.110) 10^6/uL Sodium 131 L (135-145) mmol/L Potassium 5.2 H (3.5-4.5) mmol/L Chloride 103 (101-111) mmol/L Carbon Dioxide 17 L (21-32) mmol/L Anion Gap 11.0 (6-13) BUN 73 H (6-20) mg/dL Creatinine 2.6 H (0.6-1.3) mg/dL Estimated GFR (MDRD) 23 L (>89) Glucose 333 H (74-104) mg/dL POC Whole Bld Glucose 272 321 (70-100) mg/dL Calcium 8.3 L (8.5-10.3) mg/dL Iron 36 L (50-212) ug/dL TIBC 295 (250-450) ug/dL % Saturation 12 L (20-50) % Transferrin 211 (203-362) mg/dL Ferritin 43.4 (23.9-336.2) ng/mL Total Bilirubin (0.2-1.0) mg/dL AST (10-42) IU/L ALT (10-60) IU/L Alkaline Phosphatase (42-121) IU/L Lactate Dehydrogenase 156 (140-271) IU/L Troponin I High Sens (2.3-19.7) ng/L B-Natriuretic Peptide (5-100) pg/mL Total Protein (6.4-8.9) g/dL Albumin (3.2-5.5) g/dL Globulin (2.1-4.2) g/dL Albumin/Globulin Ratio (1.0-2.2) Vitamin B12 490 (180-914) pg/mL Blood Type Blood Type Recheck Antibody Screen 10/04/24 10/04/24 10/04/24 Range/Units 05:31 05:31 05:31 WBC 11.5 H (4.8-10.8) x10^3/uL RBC 2.45 L 2.45 L (4.70-6.10) 10^6/uL Hgb 8.0 L 8.2 L (14.0-18.0) g/dL Hct 26.3 L (42.0-52.0) % MCV (80.0-94.0) fL MCH (27.0-31.0) pg MCHC (32.0-36.0) g/dL RDW (12.0-15.0) % Plt Count (130-450) 10^3/uL MPV (7.4-11.4) fL Reticulocyte % (Auto) (0.5-2.3) % Neut # (Auto) (1.5-6.6) 10^3/uL Lymph # (Auto) (1.5-3.5) 10^3/uL [place] # (Auto) (0.0-1.0) 10^3/uL Eos # (Auto) (0.0-0.7) 10^3/uL Baso # (Auto) (0.0-0.1) 10^3/uL Absolute Nucleated RBC x10^3/uL Nucleated RBC % /100WBC Absolute Retic (0.020-0.110) 10^6/uL Sodium (135-145) mmol/L Potassium (3.5-4.5) mmol/L Chloride (101-111) mmol/L Carbon Dioxide (21-32) mmol/L Anion Gap (6-13) BUN (6-20) mg/dL Creatinine (0.6-1.3) mg/dL Estimated GFR (MDRD) (>89) Glucose (74-104) mg/dL POC Whole Bld Glucose (70-100) mg/dL Calcium (8.5-10.3) mg/dL Iron (50-212) ug/dL TIBC (250-450) ug/dL % Saturation (20-50) % Transferrin (203-362) mg/dL Ferritin (23.9-336.2) ng/mL Total Bilirubin (0.2-1.0) mg/dL AST (10-42) IU/L ALT (10-60) IU/L Alkaline Phosphatase (42-121) IU/L Lactate Dehydrogenase (140-271) IU/L Troponin I High Sens (2.3-19.7) ng/L B-Natriuretic Peptide (5-100) pg/mL Total Protein (6.4-8.9) g/dL Albumin (3.2-5.5) g/dL Globulin (2.1-4.2) g/dL Albumin/Globulin Ratio (1.0-2.2) Vitamin B12 (180-914) pg/mL Blood Type Blood Type Recheck Antibody Screen 10/03/24 10/03/2425 Range/Units 22:08 17:07 15:49 WBC (4.8-10.8) x10^3/uL RBC (4.70-6.10) 10^6/uL Hgb 8.4 L 8.2 L (14.0-18.0) g/dL Hct 26.7 L 26.3 L (42.0-52.0) % MCV (80.0-94.0) fL MCH (27.0-31.0) pg MCHC (32.0-36.0) g/dL RDW (12.0-15.0) % Plt Count (130-450) 10^3/uL MPV (7.4-11.4) fL Reticulocyte % (Auto) (0.5-2.3) % Neut # (Auto) (1.5-6.6) 10^3/uL Lymph # (Auto) (1.5-3.5) 10^3/uL [place] # (Auto) (0.0-1.0) 10^3/uL Eos # (Auto) (0.0-0.7) 10^3/uL Baso # (Auto) (0.0-0.1) 10^3/uL Absolute Nucleated RBC x10^3/uL Nucleated RBC % /100WBC Absolute Retic (0.020-0.110) 10^6/uL Sodium (135-145) mmol/L Potassium (3.5-4.5) mmol/L Chloride (101-111) mmol/L Carbon Dioxide (21-32) mmol/L Anion Gap (6-13) BUN (6-20) mg/dL Creatinine (0.6-1.3) mg/dL Estimated GFR (MDRD) (>89) Glucose (74-104) mg/dL POC Whole Bld Glucose (70-100) mg/dL Calcium (8.5-10.3) mg/dL Iron (50-212) ug/dL TIBC (250-450) ug/dL % Saturation (20-50) % Transferrin (203-362) mg/dL Ferritin (23.9-336.2) ng/mL Total Bilirubin (0.2-1.0) mg/dL AST (10-42) IU/L ALT (10-60) IU/L Alkaline Phosphatase (42-121) IU/L Lactate Dehydrogenase (140-271) IU/L Troponin I High Sens 30.6 H* (2.3-19.7) ng/L B-Natriuretic Peptide (5-100) pg/mL Total Protein (6.4-8.9) g/dL Albumin (3.2-5.5) g/dL Globulin (2.1-4.2) g/dL Albumin/Globulin Ratio (1.0-2.2) Vitamin B12 (180-914) pg/mL Blood Type O POSITIVE Blood Type Recheck Antibody Screen NEGATIVE 10/03/24 Range/Units 14:49 WBC 11.4 H (4.8-10.8) x10^3/uL RBC 2.50 L (4.70-6.10) 10^6/uL Hgb 8.2 L (14.0-18.0) g/dL Hct 25.9 L (42.0-52.0) % MCV 103.6 H (80.0-94.0) fL MCH 32.8 H (27.0-31.0) pg MCHC 31.7 L (32.0-36.0) g/dL RDW 14.6 (12.0-15.0) % Plt Count 151 (130-450) 10^3/uL MPV 9.5 (7.4-11.4) fL Reticulocyte % (Auto) (0.5-2.3) % Neut # (Auto) 9.4 H (1.5-6.6) 10^3/uL Lymph # (Auto) 0.6 L (1.5-3.5) 10^3/uL [place] # (Auto) 1.1 H (0.0-1.0) 10^3/uL Eos # (Auto) 0.3 (0.0-0.7) 10^3/uL Baso # (Auto) 0.0 (0.0-0.1) 10^3/uL Absolute Nucleated RBC 0.00 x10^3/uL Nucleated RBC % 0.0 /100WBC Absolute Retic (0.020-0.110) 10^6/uL Sodium 133 L (135-145) mmol/L Potassium 5.3 H (3.5-4.5) mmol/L Chloride 103 (101-111) mmol/L Carbon Dioxide 21 (21-32) mmol/L Anion Gap 9.0 (6-13) BUN 65 H (6-20) mg/dL Creatinine 2.4 H (0.6-1.3) mg/dL Estimated GFR (MDRD) 26 L (>89) Glucose 219 H (74-104) mg/dL POC Whole Bld Glucose (70-100) mg/dL Calcium 8.4 L (8.5-10.3) mg/dL Iron (50-212) ug/dL TIBC (250-450) ug/dL % Saturation (20-50) % Transferrin (203-362) mg/dL Ferritin (23.9-336.2) ng/mL Total Bilirubin 1.2 H (0.2-1.0) mg/dL AST 18 (10-42) IU/L ALT 14 (10-60) IU/L Alkaline Phosphatase 102 (42-121) IU/L Lactate Dehydrogenase (140-271) IU/L Troponin I High Sens 30.4 H* (2.3-19.7) ng/L B-Natriuretic Peptide 366 H (5-100) pg/mL Total Protein 6.2 L (6.4-8.9) g/dL Albumin 3.6 (3.2-5.5) g/dL Globulin 2.6 (2.1-4.2) g/dL Albumin/Globulin Ratio 1.4 (1.0-2.2) Vitamin B12 (180-914) pg/mL Blood Type Blood Type Recheck O POSITIVE Antibody Screen Assessment/Plan Problem List (1) Syncope: Impression: He had another episode of this today when attempting to move to chair This event was described as more of a blank stare and inability to get the patient's attention Patient has no recollection of this and no prodrome This is concerning for absence seizure, but he has no postictal symptoms Check orthostatic vital signs Check echo Consider outpatient referral to neurology PT/OT to determine safe discharge (2) GI bleed: Impression: Surgery following Continue to trend hemoglobins Last hemoglobin 8 Transfuse to keep hemoglobin above 8 given his history of significant cardiac disease IV Protonix twice daily Carafate Iron studies show a deficiency. I have ordered IV Ferrlecit. He will need to discharge on oral iron
[2024-10-04 14:12] LABS: HCT - HEMATOCRIT 25.4 % (42.0-52.0); HGB - HEMOGLOBIN 8.2 g/dL (14.0-18.0)
[2024-10-04] MEDS: SUCRALFATE 1 GM/10 ML UDC PO SCH (16:03)
[2024-10-04] MEDS ORDERED: SODIUM ZIRCONIUM CYCLOSILICATE 5 GM PACKET PO SCH (21:00)
[2024-10-04] MEDS: METOPROLOL SUCCINATE 50 MG TABLET PO SCH (21:29)
[2024-10-04] MEDS: ATORVASTATIN 10 MG TABLET PO SCH (21:30)
[2024-10-04] MEDS: INSULIN GLARGINE-YFGN 300 UNIT/3 ML PEN SUBQ SCH (21:31)
[2024-10-04 21:36] LABS: BILIRUBIN,URINE NEGATIVE (NEGATIVE); GLUCOSE, URINE (UA) NEGATIVE (NEGATIVE); KETONES,URINE (UA) NEGATIVE (NEGATIVE); LEUKOCYTE ESTERASE, URINE NEGATIVE (NEGATIVE); NITRITE,URINE NEGATIVE (NEGATIVE); OCCULT BLOOD,URINE NEGATIVE (NEGATIVE); PH,URINE 5.5 PH (5.0-7.5); PROTEIN,URINE NEGATIVE (NEGATIVE); UROBILINOGEN,URINE 0.2 (NORMAL) E.U./dL (NORMAL)
[2024-10-04 21:37] LABS: CLARITY,URINE BLOODY (CLEAR)
[2024-10-04 21:59] LABS: HCT - HEMATOCRIT 25.4 % (42.0-52.0); HGB - HEMOGLOBIN 8.3 g/dL (14.0-18.0)
[2024-10-05 05:38] LABS: BASOPHILS % (AUTO) 0.2 %; EOSINOPHILS # (AUTO) 0.3 10^3/uL (0.0-0.7); EOSINOPHILS % (AUTO) 2.6 %; HCT - HEMATOCRIT 25.6 % (42.0-52.0); HGB - HEMOGLOBIN 8.1 g/dL (14.0-18.0); LYMPHOCYTES # (AUTO) 0.7 10^3/uL (1.5-3.5); LYMPHOCYTES % (AUTO) 5.4 %; MEAN CORPUSCULAR HEMOGLOBIN 32.4 pg (27.0-31.0); MEAN CORPUSCULAR HGB CONC 31.6 g/dL (32.0-36.0); MEAN CORPUSCULAR VOLUME 102.4 fL (80.0-94.0); MEAN PLATELET VOLUME 10.3 fL (7.4-11.4); MONOCYTES # (AUTO) 1.5 10^3/uL (0.0-1.0); MONOCYTES % (AUTO) 11.4 %; NEUTROPHILS # (AUTO) 10.3 10^3/uL (1.5-6.6); NEUTROPHILS % (AUTO) 79.8 %; PLT - PLATELET COUNT 174 10^3/uL (130-450); RED CELL DISTRIBUTION WIDTH 14.9 % (12.0-15.0); WHITE BLOOD COUNT 12.9 x10^3/uL (4.8-10.8)
[2024-10-05 05:53] LABS: CALCIUM 8.4 mg/dL (8.5-10.3); CREATININE 2.8 mg/dL (0.6-1.3); POTASSIUM 4.5 mmol/L (3.5-4.5)
[2024-10-05] MEDS: SODIUM CHLORIDE 0.9% 1,000 ML IV SCH (10:36)
[2024-10-05] MEDS: SODIUM CHLORIDE 0.9% 500 ML IV ONE (11:19)
[2024-10-05 14:09] LABS: HCT - HEMATOCRIT 26.3 % (42.0-52.0); HGB - HEMOGLOBIN 8.1 g/dL (14.0-18.0)
--- NOTE | 2024-10-05 15:33 | PROVIDER PROGRESS NOTE ---
Subjective Prog Note Date Prog Note Date: 10/05/24 Subjective Pt reports feeling: No change Current Medications Current Medications Current Medications: Current Medications Generic Name Dose Route Start Last Admin Trade Name Freq PRN Reason Stop Dose Admin Acetaminophen 650 mg 10/03/24 20:25 Acetaminophen 325 Mg Tablet PO Q4HR PRN Pain 1 to 4, or Fever Atorvastatin Calcium 20 mg 10/04/24 21:00 10/04/24 21:30 Atorvastatin 10 Mg Tablet PO 20 mg QPM JORDIN Administration Sodium Chloride 1,000 mls @ 75 mls/hr 10/05/24 10:00 10/05/24 10:36 Normal Saline 0.9% IV 75 mls/hr .[id number] JORDIN Administration Insulin Glargine-yfgn 20 unit 10/04/24 21:00 10/04/24 21:31 Insulin Glargine-Yfgn 300 Unit/3 Ml Pen SUBQ 20 unit QPM JORDIN Administration Insulin Human Lispro 1 - 5 unit 10/04/24 08:00 10/05/24 11:30 Insulin Lispro 300 Unit/3 Ml Pen SUBQ Not Given 0800,1200,1700,2100 [facility] Protocol Metoprolol Succinate 100 mg 10/04/24 21:00 10/05/24 07:49 Metoprolol Succinate 50 Mg Tablet PO 100 mg BID JORDIN Administration Ondansetron HCl 4 mg 10/03/24 20:25 Ondansetron 4 Mg/2 Ml Vial IVP Q6HR PRN Nausea / Vomiting Pantoprazole Sodium 40 mg 10/03/24 21:00 10/05/24 07:54 Pantoprazole 40 Mg Vial IVP 40 mg BID JORDIN Administration Sodium Chloride 10 ml 10/03/24 20:25 Sodium Chloride Flush 0.9% 10 Ml Syringe IVP PRN PRN NEEDED PER PROVIDER ORDERS Sodium Chloride 10 ml 10/04/24 01:00 10/05/24 07:55 Sodium Chloride Flush 0.9% 10 Ml Syringe IVP 10 ml 0100,0900,1700 JORDIN Administration Sodium Zirconium Cyclosilicate 10 gm 10/04/24 11:00 10/05/24 07:54 Sodium Zirconium Cyclosilicate 5 Gm Packet PO 10 gm BID JORDIN Administration Sucralfate 1 gm 10/04/24 16:00 10/05/24 11:28 Sucralfate 1 Gm/10 Ml Udc PO 1 gm 0700,1100,1600,2200 JORDIN Administration Objective Vital Signs/Intake & Output Reviewed Vital Signs: Yes Vital Signs: Vital Signs x48h Temp Pulse Resp BP Pulse Ox 10/05/24 14:00 36.5 C 64 20 110/54 L 96 Intake & Output: Intake & Output 10/02/24 10/03/24 10/04/24 10/05/24 23:59 23:59 23:59 23:59 Intake Total 1200 / 1200 1310 / 1310 1080 / 1080 Output Total 800 / 800 Balance 1200 / 1200 510 / 510 1080 / 1080 Weight (kg) 66 kg Objective General Appearance: positive No acute distress and Alert Eyes Bilateral: positive Normal inspection and PERRL ENT: positive ENT inspection nml Neck: positive Nml inspection Respiratory: positive Chest non-tender Cardiovascular: positive Regular rate & rhythm Abdomen: positive Non-tender Skin: positive Color nml Extremities: positive Non-tender Neurologic/Psychiatric: positive Oriented x3 Lab Results 10/05/24 14:01 10/05/24 05:13 Other Labs: Lab Results x24hrs 10/05/24 10/05/24 10/05/24 Range/Units 14:01 11:29 07:39 WBC (4.8-10.8) x10^3/uL RBC (4.70-6.10) 10^6/uL Hgb 8.1 L (14.0-18.0) g/dL Hct 26.3 L (42.0-52.0) % MCV (80.0-94.0) fL MCH (27.0-31.0) pg MCHC (32.0-36.0) g/dL RDW (12.0-15.0) % Plt Count (130-450) 10^3/uL MPV (7.4-11.4) fL Neut # (Auto) (1.5-6.6) 10^3/uL Lymph # (Auto) (1.5-3.5) 10^3/uL [place] # (Auto) (0.0-1.0) 10^3/uL Eos # (Auto) (0.0-0.7) 10^3/uL Baso # (Auto) (0.0-0.1) 10^3/uL Absolute Nucleated RBC x10^3/uL Nucleated RBC % /100WBC Sodium (135-145) mmol/L Potassium (3.5-4.5) mmol/L Chloride (101-111) mmol/L Carbon Dioxide (21-32) mmol/L Anion Gap (6-13) BUN (6-20) mg/dL Creatinine (0.6-1.3) mg/dL Estimated GFR (MDRD) (>89) Glucose (74-104) mg/dL POC Whole Bld Glucose 108 84 (70-100) mg/dL Calcium (8.5-10.3) mg/dL Iron (50-212) ug/dL Urine Color Urine Clarity (CLEAR) Urine pH (5.0-7.5) PH Ur Specific [place] (1.002-1.030) Urine Protein (NEGATIVE) mg/dL Urine Glucose (UA) (NEGATIVE) mg/dL Urine Ketones (NEGATIVE) mg/dL Urine Occult Blood (NEGATIVE) Urine Nitrite (NEGATIVE) Urine Bilirubin (NEGATIVE) Urine Urobilinogen (NORMAL) E.U./dL Ur Leukocyte Esterase (NEGATIVE) Ur Microscopic Review Urine Culture Comments 10/05/24 10/04/24 10/04/24 Range/Units 05:13 21:50 21:06 WBC 12.9 H (4.8-10.8) x10^3/uL RBC 2.50 L (4.70-6.10) 10^6/uL Hgb 8.1 L 8.3 L (14.0-18.0) g/dL Hct 25.6 L 25.4 L (42.0-52.0) % MCV 102.4 H (80.0-94.0) fL MCH 32.4 H (27.0-31.0) pg MCHC 31.6 L (32.0-36.0) g/dL RDW 14.9 (12.0-15.0) % Plt Count 174 (130-450) 10^3/uL MPV 10.3 (7.4-11.4) fL Neut # (Auto) 10.3 H (1.5-6.6) 10^3/uL Lymph # (Auto) 0.7 L (1.5-3.5) 10^3/uL [place] # (Auto) 1.5 H (0.0-1.0) 10^3/uL Eos # (Auto) 0.3 (0.0-0.7) 10^3/uL Baso # (Auto) 0.0 (0.0-0.1) 10^3/uL Absolute Nucleated RBC 0.00 x10^3/uL Nucleated RBC % 0.0 /100WBC Sodium 129 L (135-145) mmol/L Potassium 4.5 (3.5-4.5) mmol/L Chloride 101 (101-111) mmol/L Carbon Dioxide 21 (21-32) mmol/L Anion Gap 7.0 (6-13) BUN 73 H (6-20) mg/dL Creatinine 2.8 H (0.6-1.3) mg/dL Estimated GFR (MDRD) 21 L (>89) Glucose 109 H (74-104) mg/dL POC Whole Bld Glucose 203 (70-100) mg/dL Calcium 8.4 L (8.5-10.3) mg/dL Iron 246 H (50-212) ug/dL Urine Color Urine Clarity (CLEAR) Urine pH (5.0-7.5) PH Ur Specific [place] (1.002-1.030) Urine Protein (NEGATIVE) mg/dL Urine Glucose (UA) (NEGATIVE) mg/dL Urine Ketones (NEGATIVE) mg/dL Urine Occult Blood (NEGATIVE) Urine Nitrite (NEGATIVE) Urine Bilirubin (NEGATIVE) Urine Urobilinogen (NORMAL) E.U./dL Ur Leukocyte Esterase (NEGATIVE) Ur Microscopic Review Urine Culture Comments 10/04/24 10/04/24 Range/Units 20:50 16:39 WBC (4.8-10.8) x10^3/uL RBC (4.70-6.10) 10^6/uL Hgb (14.0-18.0) g/dL Hct (42.0-52.0) % MCV (80.0-94.0) fL MCH (27.0-31.0) pg MCHC (32.0-36.0) g/dL RDW (12.0-15.0) % Plt Count (130-450) 10^3/uL MPV (7.4-11.4) fL Neut # (Auto) (1.5-6.6) 10^3/uL Lymph # (Auto) (1.5-3.5) 10^3/uL [place] # (Auto) (0.0-1.0) 10^3/uL Eos # (Auto) (0.0-0.7) 10^3/uL Baso # (Auto) (0.0-0.1) 10^3/uL Absolute Nucleated RBC x10^3/uL Nucleated RBC % /100WBC Sodium (135-145) mmol/L Potassium (3.5-4.5) mmol/L Chloride (101-111) mmol/L Carbon Dioxide (21-32) mmol/L Anion Gap (6-13) BUN (6-20) mg/dL Creatinine (0.6-1.3) mg/dL Estimated GFR (MDRD) (>89) Glucose (74-104) mg/dL POC Whole Bld Glucose 222 (70-100) mg/dL Calcium (8.5-10.3) mg/dL Iron (50-212) ug/dL Urine Color YELLOW Urine Clarity BLOODY (CLEAR) Urine pH 5.5 (5.0-7.5) PH Ur Specific [place] 1.020 (1.002-1.030) Urine Protein NEGATIVE (NEGATIVE) mg/dL Urine Glucose (UA) NEGATIVE (NEGATIVE) mg/dL Urine Ketones NEGATIVE (NEGATIVE) mg/dL Urine Occult Blood NEGATIVE (NEGATIVE) Urine Nitrite NEGATIVE (NEGATIVE) Urine Bilirubin NEGATIVE (NEGATIVE) Urine Urobilinogen 0.2 (NORMAL) (NORMAL) E.U./dL Ur Leukocyte Esterase NEGATIVE (NEGATIVE) Ur Microscopic Review NOT INDICATED Urine Culture Comments NOT INDICATED Assessment/Plan Problem List (1) Syncope: Impression: He had another episode of this today when attempting to move to chair This event was described as more of a blank stare and inability to get the patient's attention Patient has no recollection of this and no prodrome This is concerning for absence seizure, but he has no postictal symptoms Check orthostatic vital signs Check echo Consider outpatient referral to neurology PT/OT to determine safe discharge 10/05/2024: Continues to have wildly varying blood pressures. His kidney function is worse today with a creatinine of 2.8. I gave him IV fluid bolus prior to physical therapy eval. Their recommendations are to follow. He did have a hyponatremia today at 129. Ordered repeat BMP to ensure resolution of hyponatremia after NS bolus. 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 Will continue IV hydration and reevaluate him with physical therapy tomorrow. Will likely need facility placement (2) GI bleed: Impression: Surgery following Continue to trend hemoglobins Last hemoglobin 8 Transfuse to keep hemoglobin above 8 given his history of significant cardiac disease IV Protonix twice daily Carafate Iron studies show a deficiency. I have ordered IV Ferrlecit. He will need to discharge on oral iron 10/05/2024: Hemoglobin stable at 8.1. Continue to monitor
[2024-10-05] MEDS: ACETAMINOPHEN 325 MG TABLET PO PRN (15:43)
--- NOTE | 2024-10-05 16:40 | PT Plan of Care ---
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 Please see chart for complete medical hx. The pt was received resting comfortably supine in bed and presented today with unstable vitals, decreased B UE and LE strength, decreased activity tolerance, and increased low back/coccyx pain which limited his tolerance with functional mobility. His overall tolerance throughout this assessment was limited by weakness and he denied any symptom exacerbation when hypotensive. At this time recommend continued skilled PT intervention while in the acute setting and DC to SNF for further rehab once pt medically stable. This plan was discussed with the pt and his , they were both in agreement with this. At the end of the session the pt was sitting up in a chair with call light in reach, chair alarm in place and on, and all needs met. RN and DNP updated on pt's status and DC rec. PATIENT/FAMILY GOALS Patient/Family Goals: To be strong enough to return home without any more falls GOALS Improve supine to sit to:: Independent Improve sit to stand to:: Standby Assist Improve pivot transfer ability to:: Standby Assist Improve sit to supine to:: Independent Improve gait ability to:: SBA Advance Assistive Device to:: Front Wheeled Walker Increase distance walked to (in feet):: 25 Improve Sitting Balance to:: Good PLAN Frequency: 1-2x/day Duration: Until discharge DISCHARGE RECOMMENDATIONS [facility] Support/Services Needed: With assist Transport Needs at Discharge: WC van if vitals stable
[2024-10-05] MEDS: FERROUS SULFATE 325 MG TABLET PO SCH (17:08)
[2024-10-05 19:16] LABS: HCT - HEMATOCRIT 25.6 % (42.0-52.0); HGB - HEMOGLOBIN 8.3 g/dL (14.0-18.0)
[2024-10-05 19:29] LABS: CREATININE 2.8 mg/dL (0.6-1.3); POTASSIUM 3.9 mmol/L (3.5-4.5)
[2024-10-05] MEDS: SODIUM CHLORIDE 1 GM TABLET PO SCH (22:50)
[2024-10-06 06:00] LABS: BASOPHILS % (AUTO) 0.2 %; EOSINOPHILS % (AUTO) 4.2 %; HCT - HEMATOCRIT 26.1 % (42.0-52.0); HGB - HEMOGLOBIN 8.1 g/dL (14.0-18.0); LYMPHOCYTES % (AUTO) 7.9 %; MEAN CORPUSCULAR HEMOGLOBIN 32.3 pg (27.0-31.0); MEAN PLATELET VOLUME 10.4 fL (7.4-11.4); MONOCYTES % (AUTO) 13.8 %; NEUTROPHILS % (AUTO) 73.3 %; PLT - PLATELET COUNT 200 10^3/uL (130-450); RED BLOOD COUNT 2.51 10^6/uL (4.70-6.10); RED CELL DISTRIBUTION WIDTH 15.4 % (12.0-15.0); WHITE BLOOD COUNT 12.4 x10^3/uL (4.8-10.8)
[2024-10-06 06:03] LABS: ABNORMAL LYMPHS % (MANUAL) 0 %
[2024-10-06 06:12] LABS: CALCIUM 8.1 mg/dL (8.5-10.3); CREATININE 2.7 mg/dL (0.6-1.3); POTASSIUM 3.7 mmol/L (3.5-4.5)
[2024-10-06 06:25] LABS: BAND NEUTROPHILS % (MANUAL) 1 %; BASOPHILS # (MANUAL) 0.1 10^3/uL (0-0.1); BASOPHILS % (MANUAL) 1 %; EOSINOPHILS # (MANUAL) 0.5 10^3/uL (0-0.7); LYMPHOCYTES # (MANUAL) 1.6 10^3/uL (1.5-3.5); LYMPHOCYTES % (MANUAL) 13 %; MONOCYTES # (MANUAL) 1.4 10^3/uL (0.0-1.0); NEUTROPHILS # (MANUAL) 8.8 10^3/uL (1.5-6.6)
[2024-10-06 06:26] LABS: DIFFERENTIAL COMMENT MANUAL DIFFERENTIAL; PLATELET ESTIMATE, MANUAL NORMAL (130-450,000) (NORMAL); PLATELET MORPHOLOGY NORMAL APPEARANCE (NORMAL); RBC MORPHOLOGY (MULTIPLE) 1+ MACROCYTOSIS (NORMAL); WBC MORPHOLOGY (MULTIPLE) NORMAL APPEARANCE (NORMAL)
--- NOTE | 2024-10-06 13:13 | OT Plan of Care ---
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 Unable to perform MRI 2/2 pacemaker. BP fluctuations but no + orthostatics . Seen for OT evaluation. A&Ox4, follows all commands. Denied sequela, no acute neurological deficits noted. + expiratory wheezing during session, Spo2 93 on RA. BP as follows with no episodes or dizziness. EOB [birth year], s/p SPT 95/51 HR 60s. Pt performed supine to sit, sit to stand, and SPT bed to chair using RW MIN A Slowed, guarded pace with cues for safety. Currently MOD A LB, MIN A UB ADL with increased time and full set up. Overall cont to present with decreased endurance, activity tolerance and ADL status. Progressing towards goals and will benefit from cont OT services during acute stay. Rec d/c to SNF at this time. Goals - Activities of Daily Living Improve Upper Extremity Modified Independent Dressing to: Improve Lower Extremity Modified Independent Dressing to: Improve Grooming/Hygiene to: Modified Independent Improve Bathing to: Modified Independent Improve Toileting to: Modified Independent Plan Treatment Frequency 1x/day -Discharge Recommendations Discharge Location [facility] Transport Needs at Discharge WC van if vitals stable
[2024-10-06 13:57] LABS: HCT - HEMATOCRIT 27.3 % (42.0-52.0); HGB - HEMOGLOBIN 8.5 g/dL (14.0-18.0)
--- NOTE | 2024-10-06 14:40 | XRAY Report ---
PROCEDURE: XR Chest 1V INDICATIONS: SOA TECHNIQUE: One view of the chest was acquired. COMPARISON: CT chest 10/03/2024 FINDINGS: Surgical changes and devices: A cardiac pacemaker is seen with pulse generator in the left chest. Sternotomy wires and mediastinal clips are present. Lungs and pleura: Small moderate right and small left pleural effusions with bibasilar atelectasis and hazy pulmonary opacities compatible with edema. Mediastinum: Cardiac silhouette is enlarged. Bones and chest wall: No suspicious bony lesions. Overlying soft tissues appear unremarkable. IMPRESSION: Bilateral pleural effusions and pulmonary edema appear similar when compared to the CT from 10/03/2024. Cardiomegaly. Reviewed by: Vince Kang MD on 10/06/2024 1:38 PM [facility] Approved by: Vince Kang MD on 10/06/2024 1:38 PM [facility] Station ID: [id number]
--- NOTE | 2024-10-06 17:04 | PROVIDER PROGRESS NOTE ---
Subjective Prog Note Date Prog Note Date: 10/06/24 Subjective Pt reports feeling: No change Current Medications Current Medications Current Medications: Current Medications Generic Name Dose Route Start Last Admin Trade Name Freq PRN Reason Stop Dose Admin Acetaminophen 650 mg 10/03/24 20:25 10/06/24 13:13 Acetaminophen 325 Mg Tablet PO 650 mg Q4HR PRN Administration Pain 1 to 4, or Fever Atorvastatin Calcium 20 mg 10/04/24 21:00 10/05/24 20:29 Atorvastatin 10 Mg Tablet PO 20 mg QPM JORDIN Administration Ferrous Sulfate 325 mg 10/05/24 17:00 10/06/24 09:02 Ferrous Sulfate 325 Mg Tablet PO 325 mg BIDWM JORDIN Administration Insulin Glargine-yfgn 20 unit 10/04/24 21:00 10/05/24 21:06 Insulin Glargine-Yfgn 300 Unit/3 Ml Pen SUBQ 20 unit QPM JORDIN Administration Insulin Human Lispro 1 - 5 unit 10/04/24 08:00 10/06/24 12:15 Insulin Lispro 300 Unit/3 Ml Pen SUBQ Not Given 0800,1200,1700,2100 [facility] Protocol Metoprolol Succinate 25 mg 10/07/24 09:00 Metoprolol Succinate 25 Mg Tablet PO DAILY [facility] Ondansetron HCl 4 mg 10/03/24 20:25 Ondansetron 4 Mg/2 Ml Vial IVP Q6HR PRN Nausea / Vomiting Pantoprazole Sodium 40 mg 10/03/24 21:00 10/06/24 09:02 Pantoprazole 40 Mg Vial IVP 40 mg BID JORDIN Administration Sodium Chloride 10 ml 10/03/24 20:25 Sodium Chloride Flush 0.9% 10 Ml Syringe IVP PRN PRN NEEDED PER PROVIDER ORDERS Sodium Chloride 10 ml 10/04/24 01:00 10/06/24 09:03 Sodium Chloride Flush 0.9% 10 Ml Syringe IVP 10 ml 0100,0900,1700 JORDIN Administration Sodium Chloride 1 gm 10/05/24 22:00 10/06/24 09:02 Sodium Chloride 1 Gm Tablet PO 1 gm BID JORDIN Administration Sucralfate 1 gm 10/04/24 16:00 10/06/24 16:26 Sucralfate 1 Gm/10 Ml Udc PO 1 gm 0700,1100,1600,2200 JORDIN Administration Objective Vital Signs/Intake & Output Reviewed Vital Signs: Yes Vital Signs: Vital Signs x48h Temp Pulse Resp BP BP Pulse Ox O2 Flow Rate 10/06/24 11:58 22 95/51 L 10/06/24 11:55 65 22 86/51 L 93 10/06/24 09:48 36.4 C L 61 20 105/51 L 92 Intake & Output: Intake & Output 10/03/24 10/04/24 10/05/24 10/06/24 23:59 23:59 23:59 23:59 Intake Total 1200 / 1200 1310 / 1310 2438 / 2438 1600 / 1600 Output Total 800 / 800 975 / 975 Balance 1200 / 1200 510 / 510 2438 / 2438 625 / 625 Weight (kg) 66 kg Objective General Appearance: positive No acute distress and Alert Eyes Bilateral: positive Normal inspection and PERRL ENT: positive ENT inspection nml Neck: positive Nml inspection Respiratory: positive Chest non-tender Cardiovascular: positive Regular rate & rhythm Abdomen: positive Non-tender Skin: positive Color nml Extremities: positive Non-tender Neurologic/Psychiatric: positive Oriented x3 Lab Results 10/06/24 13:52 10/06/24 13:52 Other Labs: Lab Results x24hrs 10/06/24 10/06/24 10/06/24 Range/Units 16:33 13:52 11:43 WBC (4.8-10.8) x10^3/uL RBC (4.70-6.10) 10^6/uL Hgb 8.5 L (14.0-18.0) g/dL Hct 27.3 L (42.0-52.0) % MCV (80.0-94.0) fL MCH (27.0-31.0) pg MCHC (32.0-36.0) g/dL RDW (12.0-15.0) % Plt Count (130-450) 10^3/uL MPV (7.4-11.4) fL Neut # (Auto) Lymph # (Auto) Haywood # (Auto) Eos # (Auto) Baso # (Auto) Absolute Nucleated RBC Total Counted Band Neuts % (Manual) (0 - 10) % Abnorm Lymph % (Manual) % Nucleated RBC % Neutrophils # (Manual) (1.5-6.6) 10^3/uL Lymphocytes # (Manual) (1.5-3.5) 10^3/uL Monocytes # (Manual) (0.0-1.0) 10^3/uL Eosinophils # (Manual) (0-0.7) 10^3/uL Basophils # (Manual) (0-0.1) 10^3/uL Differential Comment WBC Morphology (NORMAL) Platelet Estimate (NORMAL) Platelet Morphology (NORMAL) RBC Morph Micro Appear (NORMAL) Sodium 131 L (135-145) mmol/L Potassium (3.5-4.5) mmol/L Chloride (101-111) mmol/L Carbon Dioxide (21-32) mmol/L Anion Gap (6-13) BUN (6-20) mg/dL Creatinine (0.6-1.3) mg/dL Estimated GFR (MDRD) (>89) Glucose (74-104) mg/dL POC Whole Bld Glucose 68 116 (70-100) mg/dL Calcium (8.5-10.3) mg/dL Procalcitonin Immunoas (<0.5) ng/mL 10/06/24 10/06/24 10/06/24 Range/Units 09:25 08:29 07:59 WBC (4.8-10.8) x10^3/uL RBC (4.70-6.10) 10^6/uL Hgb (14.0-18.0) g/dL Hct (42.0-52.0) % MCV (80.0-94.0) fL MCH (27.0-31.0) pg MCHC (32.0-36.0) g/dL RDW (12.0-15.0) % Plt Count (130-450) 10^3/uL MPV (7.4-11.4) fL Neut # (Auto) Lymph # (Auto) Haywood # (Auto) Eos # (Auto) Baso # (Auto) Absolute Nucleated RBC Total Counted Band Neuts % (Manual) (0 - 10) % Abnorm Lymph % (Manual) % Nucleated RBC % Neutrophils # (Manual) (1.5-6.6) 10^3/uL Lymphocytes # (Manual) (1.5-3.5) 10^3/uL Monocytes # (Manual) (0.0-1.0) 10^3/uL Eosinophils # (Manual) (0-0.7) 10^3/uL Basophils # (Manual) (0-0.1) 10^3/uL Differential Comment WBC Morphology (NORMAL) Platelet Estimate (NORMAL) Platelet Morphology (NORMAL) RBC Morph Micro Appear (NORMAL) Sodium (135-145) mmol/L Potassium (3.5-4.5) mmol/L Chloride (101-111) mmol/L Carbon Dioxide (21-32) mmol/L Anion Gap (6-13) BUN (6-20) mg/dL Creatinine (0.6-1.3) mg/dL Estimated GFR (MDRD) (>89) Glucose (74-104) mg/dL POC Whole Bld Glucose 124 76 56 (70-100) mg/dL Calcium (8.5-10.3) mg/dL Procalcitonin Immunoas (<0.5) ng/mL 10/06/24 10/06/24 10/05/24 Range/Units 05:37 01:39 21:49 WBC 12.4 H (4.8-10.8) x10^3/uL RBC 2.51 L (4.70-6.10) 10^6/uL Hgb 8.1 L (14.0-18.0) g/dL Hct 26.1 L (42.0-52.0) % MCV 104.0 H (80.0-94.0) fL MCH 32.3 H (27.0-31.0) pg MCHC 31.0 L (32.0-36.0) g/dL RDW 15.4 H (12.0-15.0) % Plt Count 200 (130-450) 10^3/uL MPV 10.4 (7.4-11.4) fL Neut # (Auto) Not Reportable Lymph # (Auto) Not Reportable Haywood # (Auto) Not Reportable Eos # (Auto) Not Reportable Baso # (Auto) Not Reportable Absolute Nucleated RBC Not Reportable Total Counted 100 Band Neuts % (Manual) 1 (0 - 10) % Abnorm Lymph % (Manual) 0 % Nucleated RBC % Not Reportable Neutrophils # (Manual) 8.8 H (1.5-6.6) 10^3/uL Lymphocytes # (Manual) 1.6 (1.5-3.5) 10^3/uL Monocytes # (Manual) 1.4 H (0.0-1.0) 10^3/uL Eosinophils # (Manual) 0.5 (0-0.7) 10^3/uL Basophils # (Manual) 0.1 (0-0.1) 10^3/uL Differential Comment MANUAL DIFFERENTIAL WBC Morphology NORMAL APPEARANCE (NORMAL) Platelet Estimate NORMAL (130-450,000) (NORMAL) Platelet Morphology NORMAL APPEARANCE (NORMAL) RBC Morph Micro Appear 1+ MACROCYTOSIS (NORMAL) Sodium 131 L 131 L 129 L (135-145) mmol/L Potassium 3.7 (3.5-4.5) mmol/L Chloride 103 (101-111) mmol/L Carbon Dioxide 19 L (21-32) mmol/L Anion Gap 9.0 (6-13) BUN 70 H (6-20) mg/dL Creatinine 2.7 H (0.6-1.3) mg/dL Estimated GFR (MDRD) 22 L (>89) Glucose 83 (74-104) mg/dL POC Whole Bld Glucose (70-100) mg/dL Calcium 8.1 L (8.5-10.3) mg/dL Procalcitonin Immunoas 0.49 (<0.5) ng/mL 10/05/25 05/25/ Range/Units 20:35 18:58 WBC (4.8-10.8) x10^3/uL RBC (4.70-6.10) 10^6/uL Hgb 8.3 L (14.0-18.0) g/dL Hct 25.6 L (42.0-52.0) % MCV (80.0-94.0) fL MCH (27.0-31.0) pg MCHC (32.0-36.0) g/dL RDW (12.0-15.0) % Plt Count (130-450) 10^3/uL MPV (7.4-11.4) fL Neut # (Auto) Lymph # (Auto) [place] # (Auto) Eos # (Auto) Baso # (Auto) Absolute Nucleated RBC Total Counted Band Neuts % (Manual) (0 - 10) % Abnorm Lymph % (Manual) % Nucleated RBC % Neutrophils # (Manual) (1.5-6.6) 10^3/uL Lymphocytes # (Manual) (1.5-3.5) 10^3/uL Monocytes # (Manual) (0.0-1.0) 10^3/uL Eosinophils # (Manual) (0-0.7) 10^3/uL Basophils # (Manual) (0-0.1) 10^3/uL Differential Comment WBC Morphology (NORMAL) Platelet Estimate (NORMAL) Platelet Morphology (NORMAL) RBC Morph Micro Appear (NORMAL) Sodium 129 L (135-145) mmol/L Potassium 3.9 (3.5-4.5) mmol/L Chloride 101 (101-111) mmol/L Carbon Dioxide 20 L (21-32) mmol/L Anion Gap 8.0 (6-13) BUN 73 H (6-20) mg/dL Creatinine 2.8 H (0.6-1.3) mg/dL Estimated GFR (MDRD) 21 L (>89) Glucose 150 H (74-104) mg/dL POC Whole Bld Glucose 144 (70-100) mg/dL Calcium 8.0 L (8.5-10.3) mg/dL Procalcitonin Immunoas (<0.5) ng/mL Assessment/Plan Problem List (1) Syncope: Impression: He had another episode of this today when attempting to move to chair This event was described as more of a blank stare and inability to get the patient's attention Patient has no recollection of this and no prodrome This is concerning for absence seizure, but he has no postictal symptoms Check orthostatic vital signs Check echo Consider outpatient referral to neurology PT/OT to determine safe discharge 10/05/2024: Continues to have wildly varying blood pressures. His kidney function is worse today with a creatinine of 2.8. I gave him IV fluid bolus prior to physical therapy eval. Their recommendations are to follow. He did have a hyponatremia today at 129. Ordered repeat BMP to ensure resolution of hyponatremia after NS bolus. 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 Will continue IV hydration and reevaluate him with physical therapy tomorrow. Will likely need facility placement 10/06/2024: Did much better with physical therapy today. His creatinine has stabilized. He still has widely varying blood pressures that do not seem to be related to position. I am decreasing his metoprolol from 100 mg p.o. twice daily to 25 mg p.o. daily. Due to dyspnea as described below, I have discontinued his IV fluids (2) GI bleed: Impression: Surgery following Continue to trend hemoglobins Last hemoglobin 8 Transfuse to keep hemoglobin above 8 given his history of significant cardiac disease IV Protonix twice daily Carafate Iron studies show a deficiency. I have ordered IV Ferrlecit. He will need to discharge on oral iron 10/05/2024: Hemoglobin stable at 8.1. Continue to monitor 10/06/2024: Hemoglobin up to 8.5 this afternoon. Continue oral iron (3) Dyspnea: Impression: Had some dyspnea today after activity. He reported wheezing. I do not hear any wheezing on auscultation. Chest x-ray was performed and is unchanged. He has no smoking history but did grow up with a father who smoked in the house.. I have ordered DuoNeb RT 4 times daily as needed. (4) Diabetes: Impression: His diabetes is managed with 20 units of nightly Lantus. Nursing reports glucose this afternoon 68. Given his advanced age I am stopping his Lantus and will continue with only SSI for now
[2024-10-06] MEDS: IPRATROPIUM/ALBUTEROL 3 ML NEB INH PRN (21:29)
[2024-10-06 21:48] LABS: HCT - HEMATOCRIT 26.7 % (42.0-52.0); HGB - HEMOGLOBIN 8.4 g/dL (14.0-18.0)
[2024-10-06] MEDS: FUROSEMIDE 20 MG/2 ML VIAL IVP STA (22:04)
[2024-10-07 05:50] LABS: BASOPHILS % (AUTO) 0.4 %; EOSINOPHILS # (AUTO) 0.4 10^3/uL (0.0-0.7); HCT - HEMATOCRIT 25.7 % (42.0-52.0); HGB - HEMOGLOBIN 8.2 g/dL (14.0-18.0); LYMPHOCYTES # (AUTO) 0.6 10^3/uL (1.5-3.5); LYMPHOCYTES % (AUTO) 5.7 %; MEAN CORPUSCULAR HEMOGLOBIN 32.7 pg (27.0-31.0); MEAN CORPUSCULAR HGB CONC 31.9 g/dL (32.0-36.0); MEAN CORPUSCULAR VOLUME 102.4 fL (80.0-94.0); MEAN PLATELET VOLUME 9.6 fL (7.4-11.4); MONOCYTES # (AUTO) 1.5 10^3/uL (0.0-1.0); MONOCYTES % (AUTO) 14.1 %; NEUTROPHILS # (AUTO) 8.1 10^3/uL (1.5-6.6); NEUTROPHILS % (AUTO) 75.3 %; PLT - PLATELET COUNT 202 10^3/uL (130-450); RED BLOOD COUNT 2.51 10^6/uL (4.70-6.10); RED CELL DISTRIBUTION WIDTH 15.3 % (12.0-15.0); WHITE BLOOD COUNT 10.7 x10^3/uL (4.8-10.8)
[2024-10-07 06:23] LABS: CREATININE 2.6 mg/dL (0.6-1.3); POTASSIUM 2.9 mmol/L (3.5-4.5); SLIDE REVIEW? Indicated
[2024-10-07 06:24] LABS: PLATELET ESTIMATE, MANUAL NORMAL (130-450,000) (NORMAL); PLATELET MORPHOLOGY NORMAL APPEARANCE (NORMAL); RBC MORPHOLOGY (MULTIPLE) 1+ ANISOCYTOSIS (NORMAL); WBC MORPHOLOGY (MULTIPLE) NORMAL APPEARANCE (NORMAL)
[2024-10-07] MEDS: TORSEMIDE 20 MG TABLET PO SCH (08:24)
[2024-10-07] MEDS: METOPROLOL SUCCINATE 25 MG TABLET PO SCH (08:24)
[2024-10-07] MEDS: POTASSIUM CHLORIDE 20 MEQ TABLET PO ONE (10:06)
[2024-10-07] MEDS: POTASSIUM CHLOR 10 MEQ/100 ML 10 MEQ/100 ML BAG IV SCH ×2 (10:27→20:39)
--- NOTE | 2024-10-07 14:13 | PROVIDER PROGRESS NOTE ---
Subjective Prog Note Date Prog Note Date: 10/07/24 Subjective Pt reports feeling: No change Current Medications Current Medications Current Medications: Current Medications Generic Name Dose Route Start Last Admin Trade Name Freq PRN Reason Stop Dose Admin Acetaminophen 650 mg 10/03/24 20:25 10/07/24 12:16 Acetaminophen 325 Mg Tablet PO 650 mg Q4HR PRN Administration Pain 1 to 4, or Fever Albuterol/Ipratropium 3 ml 10/06/24 17:17 10/06/24 21:29 Ipratropium/Albuterol 3 Ml Neb INH 3 ml RTQID PRN Administration Shortness of Air/Wheezing Atorvastatin Calcium 20 mg 10/04/24 21:00 10/06/24 21:18 Atorvastatin 10 Mg Tablet PO 20 mg QPM JORDIN Administration Ferrous Sulfate 325 mg 10/05/24 17:00 10/07/24 08:24 Ferrous Sulfate 325 Mg Tablet PO 325 mg BIDWM JORDIN Administration Insulin Human Lispro 1 - 5 unit 10/04/24 08:00 10/07/24 11:38 Insulin Lispro 300 Unit/3 Ml Pen SUBQ Not Given 0800,1200,1700,2100 [facility] Protocol Metoprolol Succinate 25 mg 10/07/24 09:00 10/07/24 08:24 Metoprolol Succinate 25 Mg Tablet PO 25 mg DAILY JORDIN Administration Ondansetron HCl 4 mg 10/03/24 20:25 Ondansetron 4 Mg/2 Ml Vial IVP Q6HR PRN Nausea / Vomiting Pantoprazole Sodium 40 mg 10/03/24 21:00 10/07/24 08:25 Pantoprazole 40 Mg Vial IVP 40 mg BID JORDIN Administration Sodium Chloride 10 ml 10/03/24 20:25 Sodium Chloride Flush 0.9% 10 Ml Syringe IVP PRN PRN NEEDED PER PROVIDER ORDERS Sodium Chloride 10 ml 10/04/24 01:00 10/07/24 08:29 Sodium Chloride Flush 0.9% 10 Ml Syringe IVP 10 ml 0100,0900,1700 JORDIN Administration Sodium Chloride 1 gm 10/05/24 22:00 10/07/24 08:24 Sodium Chloride 1 Gm Tablet PO 1 gm BID JORDIN Administration Sucralfate 1 gm 10/04/24 16:00 10/07/24 11:21 Sucralfate 1 Gm/10 Ml Udc PO 1 gm 0700,1100,1600,2200 JORDIN Administration Torsemide 20 mg 10/07/24 09:00 10/07/24 08:24 Torsemide 20 Mg Tablet PO 20 mg DAILY JORDIN Administration Objective Vital Signs/Intake & Output Reviewed Vital Signs: Yes Vital Signs: Vital Signs x48h Temp Pulse Resp BP Pulse Ox 10/07/24 07:44 36.8 C 74 24 107/59 L 88 L Intake & Output: Intake & Output 10/04/24 10/05/24 10/06/24 10/07/24 23:59 23:59 23:59 23:59 Intake Total 1310 / 1310 2438 / 2438 1720 / 1720 640 / 640 Output Total 800 / 800 975 / 975 700 / 700 Balance 510 / 510 2438 / 2438 745 / 745 -60 / -60 Objective General Appearance: positive No acute distress and Alert Eyes Bilateral: positive Normal inspection and PERRL ENT: positive ENT inspection nml Neck: positive Nml inspection Respiratory: positive Chest non-tender Cardiovascular: positive Regular rate & rhythm Abdomen: positive Non-tender Skin: positive Color nml Extremities: positive Non-tender Neurologic/Psychiatric: positive Oriented x3 Lab Results 10/07/24 05:38 10/07/24 05:38 Other Labs: Lab Results x24hrs 10/07/24 10/07/24 10/07/24 Range/Units 11:27 07:37 06:50 WBC (4.8-10.8) x10^3/uL RBC (4.70-6.10) 10^6/uL Hgb (14.0-18.0) g/dL Hct (42.0-52.0) % MCV (80.0-94.0) fL MCH (27.0-31.0) pg MCHC (32.0-36.0) g/dL RDW (12.0-15.0) % Plt Count (130-450) 10^3/uL MPV (7.4-11.4) fL Neut # (Auto) (1.5-6.6) 10^3/uL Lymph # (Auto) (1.5-3.5) 10^3/uL Dolores # (Auto) (0.0-1.0) 10^3/uL Eos # (Auto) (0.0-0.7) 10^3/uL Baso # (Auto) (0.0-0.1) 10^3/uL Absolute Nucleated RBC x10^3/uL Nucleated RBC % /100WBC Manual Slide Review WBC Morphology (NORMAL) Platelet Estimate (NORMAL) Platelet Morphology (NORMAL) RBC Morph Micro Appear (NORMAL) Sodium (135-145) mmol/L Potassium (3.5-4.5) mmol/L Chloride (101-111) mmol/L Carbon Dioxide (21-32) mmol/L Anion Gap (6-13) BUN (6-20) mg/dL Creatinine (0.6-1.3) mg/dL Estimated GFR (MDRD) (>89) Glucose (74-104) mg/dL POC Whole Bld Glucose 140 138 74 (70-100) mg/dL Calcium (8.5-10.3) mg/dL Procalcitonin Immunoas (<0.5) ng/mL 10/07/24 10/07/24 10/06/24 Range/Units 05:38 01:44 21:42 WBC 10.7 (4.8-10.8) x10^3/uL RBC 2.51 L (4.70-6.10) 10^6/uL Hgb 8.2 L 8.4 L (14.0-18.0) g/dL Hct 25.7 L 26.7 L (42.0-52.0) % MCV 102.4 H (80.0-94.0) fL MCH 32.7 H (27.0-31.0) pg MCHC 31.9 L (32.0-36.0) g/dL RDW 15.3 H (12.0-15.0) % Plt Count 202 (130-450) 10^3/uL MPV 9.6 (7.4-11.4) fL Neut # (Auto) 8.1 H (1.5-6.6) 10^3/uL Lymph # (Auto) 0.6 L (1.5-3.5) 10^3/uL Dolores # (Auto) 1.5 H (0.0-1.0) 10^3/uL Eos # (Auto) 0.4 (0.0-0.7) 10^3/uL Baso # (Auto) 0.0 (0.0-0.1) 10^3/uL Absolute Nucleated RBC 0.00 x10^3/uL Nucleated RBC % 0.0 /100WBC Manual Slide Review Indicated WBC Morphology NORMAL APPEARANCE (NORMAL) Platelet Estimate NORMAL (130-450,000) (NORMAL) Platelet Morphology NORMAL APPEARANCE (NORMAL) RBC Morph Micro Appear 1+ ANISOCYTOSIS (NORMAL) Sodium 133 L 133 L 133 L (135-145) mmol/L Potassium 2.9 L (3.5-4.5) mmol/L Chloride 103 (101-111) mmol/L Carbon Dioxide 20 L (21-32) mmol/L Anion Gap 10.0 (6-13) BUN 71 H (6-20) mg/dL Creatinine 2.6 H (0.6-1.3) mg/dL Estimated GFR (MDRD) 23 L (>89) Glucose 61 L (74-104) mg/dL POC Whole Bld Glucose (70-100) mg/dL Calcium 8.0 L (8.5-10.3) mg/dL Procalcitonin Immunoas (<0.5) ng/mL 10/06/24 10/06/24 10/06/24 Range/Units 20:45 17:57 17:49 WBC (4.8-10.8) x10^3/uL RBC (4.70-6.10) 10^6/uL Hgb (14.0-18.0) g/dL Hct (42.0-52.0) % MCV (80.0-94.0) fL MCH (27.0-31.0) pg MCHC (32.0-36.0) g/dL RDW (12.0-15.0) % Plt Count (130-450) 10^3/uL MPV (7.4-11.4) fL Neut # (Auto) (1.5-6.6) 10^3/uL Lymph # (Auto) (1.5-3.5) 10^3/uL Dolores # (Auto) (0.0-1.0) 10^3/uL Eos # (Auto) (0.0-0.7) 10^3/uL Baso # (Auto) (0.0-0.1) 10^3/uL Absolute Nucleated RBC x10^3/uL Nucleated RBC % /100WBC Manual Slide Review WBC Morphology (NORMAL) Platelet Estimate (NORMAL) Platelet Morphology (NORMAL) RBC Morph Micro Appear (NORMAL) Sodium 131 L (135-145) mmol/L Potassium (3.5-4.5) mmol/L Chloride (101-111) mmol/L Carbon Dioxide (21-32) mmol/L Anion Gap (6-13) BUN (6-20) mg/dL Creatinine (0.6-1.3) mg/dL Estimated GFR (MDRD) (>89) Glucose (74-104) mg/dL POC Whole Bld Glucose 74 96 (70-100) mg/dL Calcium (8.5-10.3) mg/dL Procalcitonin Immunoas (<0.5) ng/mL 10/06/24 10/06/24 Range/Units 16:33 05:37 WBC (4.8-10.8) x10^3/uL RBC (4.70-6.10) 10^6/uL Hgb (14.0-18.0) g/dL Hct (42.0-52.0) % MCV (80.0-94.0) fL MCH (27.0-31.0) pg MCHC (32.0-36.0) g/dL RDW (12.0-15.0) % Plt Count (130-450) 10^3/uL MPV (7.4-11.4) fL Neut # (Auto) (1.5-6.6) 10^3/uL Lymph # (Auto) (1.5-3.5) 10^3/uL Dolores # (Auto) (0.0-1.0) 10^3/uL Eos # (Auto) (0.0-0.7) 10^3/uL Baso # (Auto) (0.0-0.1) 10^3/uL Absolute Nucleated RBC x10^3/uL Nucleated RBC % /100WBC Manual Slide Review WBC Morphology (NORMAL) Platelet Estimate (NORMAL) Platelet Morphology (NORMAL) RBC Morph Micro Appear (NORMAL) Sodium (135-145) mmol/L Potassium (3.5-4.5) mmol/L Chloride (101-111) mmol/L Carbon Dioxide (21-32) mmol/L Anion Gap (6-13) BUN (6-20) mg/dL Creatinine (0.6-1.3) mg/dL Estimated GFR (MDRD) (>89) Glucose (74-104) mg/dL POC Whole Bld Glucose 68 (70-100) mg/dL Calcium (8.5-10.3) mg/dL Procalcitonin Immunoas 0.49 (<0.5) ng/mL Assessment/Plan Problem List (1) Cardiomyopathy: Impression: He has been having intermittent dyspnea, typically with activity. He is beginning to develop Rales. Chest x-ray with no significant change since admit, but he is significantly up on his volume status. He has history of cardiomyopathy with AV pacemaker and AICD. 10/07/2024:Wet read on echocardiogram shows severe hypofunction and elevated right-sided pressures. I am going to give him a 40 mg Lasix push on top of the torsemide that started back today. Anticipate medical readiness for discharge tomorrow as we are still awaiting echo read. Continue to check daily BMP to monitor for renal toxicity of diuretics (2) Syncope: Impression: He had another episode of this today when attempting to move to chair This event was described as more of a blank stare and inability to get the patient's attention Patient has no recollection of this and no prodrome This is concerning for absence seizure, but he has no postictal symptoms Check orthostatic vital signs Check echo Consider outpatient referral to neurology PT/OT to determine safe discharge 10/05/2024: Continues to have wildly varying blood pressures. His kidney function is worse today with a creatinine of 2.8. I gave him IV fluid bolus prior to physical therapy eval. Their recommendations are to follow. He did have a hyponatremia today at 129. Ordered repeat BMP to ensure resolution of hyponatremia after NS bolus. 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 Will continue IV hydration and reevaluate him with physical therapy tomorrow. Will likely need facility placement 10/06/2024: Did much better with physical therapy today. His creatinine has stabilized. He still has widely varying blood pressures that do not seem to be related to position. I am decreasing his metoprolol from 100 mg p.o. twice daily to 25 mg p.o. daily. Due to dyspnea as described below, I have discontinued his IV fluids 10/07/2024: Continues to do well with physical therapy. No more episodes of syncope versus absence seizure. Still needs SNF at discharge (3) GI bleed: Impression: Surgery following Continue to trend hemoglobins Last hemoglobin 8 Transfuse to keep hemoglobin above 8 given his history of significant cardiac disease IV Protonix twice daily Carafate Iron studies show a deficiency. I have ordered IV Ferrlecit. He will need to discharge on oral iron 10/05/2024: Hemoglobin stable at 8.1. Continue to monitor 10/06/2024: Hemoglobin up to 8.5 this afternoon. Continue oral iron (4) Diabetes: Impression: I have stopped his long-acting insulin due to hypoglycemia. Managed with SSI only for now
[2024-10-07] MEDS ORDERED: PANTOPRAZOLE 40 MG VIAL IVP SCH (16:00)
[2024-10-07] MEDS ORDERED: SODIUM CHLORIDE 0.9% 500 ML IV ONE (16:28)
--- NOTE | 2024-10-07 16:48 | ECHO Report ---
Version: 1 Study ID: [id number] Adult Echocardiogram Report Name: BELLA COLBERT Study Date: 10/07/2024, 9: 36 AM BP: 107 / 59 mmHg Patient [place] [facility] [place]01 HR: 75 bpm : 1935 (MM/DD/YYYY) Gender: Male Height: 71 in Age: 89 Years Weight: 145.505 lb Reason For Study: Syncope workup History: Syncope, hypotension Procedure: A complete two-dimensional transthoracic echocardiogram was performed (2D, M- mode, Doppler and color flow Doppler). Indication: Evaluate cardiac and valve function. The study was done with the patient in the supine position, due to inability to lie on the left side. There were a high frequency of premature ventricular contractions. Interpretation Summary There is mild concentric increase in the wall thickness of the left ventricle. Global left ventricular systolic function is moderately decreased.The visual left ventricular ejection fraction is estimated at 35%. The right ventricle is severely dilated. The right ventricular systolic function is severely decreased. A pacer/defibrillator lead is present in the right heart. Severe tricuspid regurgitation present. The pulmonary artery systolic pressure is severely increased. The pulmonary artery systolic pressure, calculated from a peak tricuspid regurgitant velocity in conjunction with an estimated right atrial pressure, is 76 - 81mmHg. Left Ventricle: The left ventricle is normal in size. There is mild concentric increase in the wall thickness of the left ventricle. Global left ventricular systolic function is moderately decreased. The visual left ventricular ejection fraction is estimated at 35%. The interventricular septum is flattened in systole and diastole consistent with right ventricular pressure and volume overload. Diastolic function could not be accurately assessed due to irregular rhythm. Right Ventricle: The right ventricle is severely dilated. The right ventricular systolic function is severely decreased. The right ventricular fractional area change (FAC) is 22%. Mid to distal RV free wall is severely hypokinetic. A pacer/defibrillator lead is present in the right heart. Aortic Valve: The aortic valve is trileaflet. The aortic valve is mildly thickened. Aortic valve sclerosis is present without stenosis. No hemodynamically significant valvular aortic stenosis. No aortic regurgitation is present. Mitral Valve: The mitral valve leaflets are mildly thickened. No evidence of mitral stenosis is seen. There is mild mitral regurgitation. Tricuspid Valve: The tricuspid valve leaflets are mildly thickened. Severe tricuspid regurgitation present. The flow in the hepatic veins is reversed during ventricular systole. Pulmonic Valve: The pulmonic valve is normal in structure and function. The midsystolic closure or "notching" of the pulmonic valve on the M-mode echocardiogram is suggestive of pulmonary hypertension. There is no pulmonic valvular stenosis. Mild pulmonic valvular regurgitation is present. Left Atrium: The left atrium is moderately dilated. The left atrial volume indexed to body surface area is 45 ml/m2. This refers to the maximal volume measured prior to mitral valve opening. Right Atrium: The right atrium is severely dilated. A pacer/defibrillator wire is present in the right atrium. The inferior vena cava is significantly dilated with diminished collapse with sniff (estimated right atrial pressure 15-20mmHg). Atrial Septum: Lipomatous hypertrophy of the interatrial septum is present. Aorta: The ascending aorta is not well seen. The sinuses of Valsalva are normal in size. The aorta at the sinus of Valsalva measures 3.6cm. Pulmonary Artery: The pulmonary artery systolic pressure is severely increased. The pulmonary artery systolic pressure, calculated from a peak tricuspid regurgitant velocity in conjunction with an estimated right atrial pressure, is 76 - 81mmHg. Pericardium/Pleural Space: There is no pericardial effusion. Bilateral pleural effusions are present. CPT Codes: 36097/[id number]: Transthoracic Echo with Spectral and Color Doppler. Doppler Measurements & Calculations Ao max P.4 mmHg Ao V2 max: 91.8 cm/sec LV V1 max: 60.5 cm/sec LV V1 max P.46 mmHg LV V1 mean: 44.7 cm/sec LV V1 mean P.89 mmHg LV V1 VTI: 12.8 cm PA max P.34 mmHg PA V2 max: 57.9 cm/sec RAP systole: 20.0 mmHg TR max P.2 mmHg TR max ignacio: 391.1 cm/sec MMode/2D Measurements & Calculations Ao Sinus Diam_: 3.6 cm ESV(sp4-el): 77.5 ml Heart Rate: 75.0 BPM Height (metric): 180.3 cm IVSd: 1.14 cm LA A4C-A/L: 21.4 cm² LA dimension: 5.4 cm LA ESV-A/L: 67.6 ml LAV(MOD-sp2): 84.9 ml LAV(MOD-sp4): 92.0 ml LVIDd: 4.9 cm LVIDs: 4.3 cm LVPWd: 1.08 cm RV JAVIER: 27.2 cm² RV VAISHALI: 21.4 cm² RV FAC: 21.5 % Systolic Pressure: 107.0 mmHg Other Measurements & Calculations Ao Sinus Diam_: 3.6 cm Ao V2 max: 91.8 cm/sec BMI: 20.3 kilograms/m² BSA: 1.84 m² BSA([facility]): 1.81 m² Diastolic Pressure: 59.0 mmHg EDV(Teich): 111.9 ml EF(Teich): 27.7 % ESV(sp4-el): 77.5 ml ESV(Teich): 80.9 ml FS: 12.9 % Heart Rate: 75.0 BPM Height (metric): 180.3 cm IVSd: 1.14 cm LA A4C-A/L: 21.4 cm² LA dimension: 5.4 cm LA ESV-A/L: 67.6 ml LAV(MOD-sp2): 84.9 ml LAV(MOD-sp4): 92.0 ml LV V1 max: 60.5 cm/sec LV V1 mean: 44.7 cm/sec LV V1 mean P.89 mmHg LVIDd: 4.9 cm LVIDs: 4.3 cm LVPWd: 1.08 cm PA max P.34 mmHg PA V2 max: 57.9 cm/sec RAP systole: 20.0 mmHg RV JAVIER: 27.2 cm² RV VAISHALI: 21.4 cm² RV FAC: 21.5 % RVSP(TR): 81.2 mmHg Systolic Pressure: 107.0 mmHg TR max P.2 mmHg TR max ignacio: 391.1 cm/sec TV max P.2 mmHg Weight (metric): 66.0 kg MD Hemalatha Alcaraz 10/07/2024, 4: 48 PM Ordering Physician: Law Lopes Referring Physician: Wilfredo Appiah Performed By: Amaya Yeh RDCS
[2024-10-07] MEDS: FUROSEMIDE 40 MG/4 ML VIAL IVP STA (20:10)
[2024-10-08 05:21] LABS: BASOPHILS % (AUTO) 0.3 %; EOSINOPHILS # (AUTO) 0.3 10^3/uL (0.0-0.7); EOSINOPHILS % (AUTO) 3.6 %; HCT - HEMATOCRIT 27.5 % (42.0-52.0); HGB - HEMOGLOBIN 8.8 g/dL (14.0-18.0); LYMPHOCYTES # (AUTO) 0.6 10^3/uL (1.5-3.5); LYMPHOCYTES % (AUTO) 6.2 %; MEAN CORPUSCULAR HEMOGLOBIN 32.7 pg (27.0-31.0); MEAN CORPUSCULAR VOLUME 102.2 fL (80.0-94.0); MEAN PLATELET VOLUME 9.5 fL (7.4-11.4); MONOCYTES # (AUTO) 1.4 10^3/uL (0.0-1.0); MONOCYTES % (AUTO) 15.3 %; NEUTROPHILS # (AUTO) 6.8 10^3/uL (1.5-6.6); NEUTROPHILS % (AUTO) 74.4 %; PLT - PLATELET COUNT 185 10^3/uL (130-450); RED BLOOD COUNT 2.69 10^6/uL (4.70-6.10); RED CELL DISTRIBUTION WIDTH 16.1 % (12.0-15.0); WHITE BLOOD COUNT 9.2 x10^3/uL (4.8-10.8)
[2024-10-08 05:47] LABS: CALCIUM 8.3 mg/dL (8.5-10.3); CREATININE 2.5 mg/dL (0.6-1.3)
[2024-10-08] MEDS: PRENATAL VITAMIN TABLET PO SCH (10:58)
[2024-10-08] MEDS: FUROSEMIDE 40 MG/4 ML VIAL IVP ONE (10:58)
--- NOTE | 2024-10-08 15:22 | PROVIDER PROGRESS NOTE ---
Subjective Prog Note Date Prog Note Date: 10/08/24 Subjective Pt reports feeling: Improved Subjective: Still reporting dyspnea with activity Current Medications Current Medications Current Medications: Current Medications Generic Name Dose Route Start Last Admin Trade Name Freq PRN Reason Stop Dose Admin Acetaminophen 650 mg 10/03/24 20:25 10/08/24 14:47 Acetaminophen 325 Mg Tablet PO 650 mg Q4HR PRN Administration Pain 1 to 4, or Fever Albuterol/Ipratropium 3 ml 10/06/24 17:17 10/07/24 19:52 Ipratropium/Albuterol 3 Ml Neb INH 3 ml RTQID PRN Administration Shortness of Air/Wheezing Atorvastatin Calcium 20 mg 10/04/24 21:00 10/07/24 20:10 Atorvastatin 10 Mg Tablet PO 20 mg QPM JORDIN Administration Ferrous Sulfate 325 mg 10/05/24 17:00 10/08/24 08:35 Ferrous Sulfate 325 Mg Tablet PO 325 mg BIDWM JORDIN Administration Furosemide 40 mg 10/08/24 16:00 Furosemide 40 Mg/4 Ml Vial IVP BIDDIURETIC JORDIN Insulin Glargine-yfgn 10 unit 10/08/24 21:00 Insulin Glargine-Yfgn 300 Unit/3 Ml Pen SUBQ QPM JORDIN Insulin Human Lispro 1 - 5 unit 10/04/24 08:00 10/08/24 11:37 Insulin Lispro 300 Unit/3 Ml Pen SUBQ 2 unit 0800,1200,1700,2100 JORDIN Administration Protocol Metoprolol Succinate 25 mg 10/07/24 09:00 10/08/24 08:35 Metoprolol Succinate 25 Mg Tablet PO 25 mg DAILY JORDIN Administration Ondansetron HCl 4 mg 10/03/24 20:25 Ondansetron 4 Mg/2 Ml Vial IVP Q6HR PRN Nausea / Vomiting Pantoprazole Sodium 40 mg 10/03/24 21:00 10/08/24 08:34 Pantoprazole 40 Mg Vial IVP 40 mg BID JORDIN Administration Multivit/Folic Acid/Iron 1 tab 10/08/24 10:00 10/08/24 10:58 Vitamin Tablet PO 1 tab DAILYWM JORDIN Administration Sodium Chloride 10 ml 10/03/24 20:25 Sodium Chloride Flush 0.9% 10 Ml Syringe IVP PRN PRN NEEDED PER PROVIDER ORDERS Sodium Chloride 10 ml 10/04/24 01:00 10/08/24 08:35 Sodium Chloride Flush 0.9% 10 Ml Syringe IVP 10 ml 0100,0900,1700 JORDIN Administration Sucralfate 1 gm 10/04/24 16:00 10/08/24 11:37 Sucralfate 1 Gm/10 Ml Udc PO 1 gm 0700,1100,1600,2200 JORDIN Administration Torsemide 20 mg 10/07/24 09:00 10/08/24 08:34 Torsemide 20 Mg Tablet PO 20 mg DAILY JORDIN Administration Objective Vital Signs/Intake & Output Reviewed Vital Signs: Yes Vital Signs: Vital Signs x48h Temp Pulse Resp BP Pulse Ox 10/08/24 07:34 36.7 C 64 20 124/52 L 92 Intake & Output: Intake & Output 10/05/24 10/06/24 10/07/24 10/08/24 23:59 23:59 23:59 23:59 Intake Total 2438 / 2438 1720 / 1720 1830 / 1830 420 / 420 Output Total 975 / 975 700 / 700 250 / 250 Balance 2438 / 2438 745 / 745 1130 / 1130 170 / 170 Weight (kg) 69.5 kg Objective General Appearance: positive No acute distress and Alert Eyes Bilateral: positive Normal inspection and PERRL ENT: positive ENT inspection nml Neck: positive Nml inspection Respiratory: positive Chest non-tender Cardiovascular: positive Regular rate & rhythm Abdomen: positive Non-tender Skin: positive Color nml Extremities: positive Non-tender Neurologic/Psychiatric: positive Oriented x3 Lab Results 10/08/24 04:42 10/08/24 04:42 Other Labs: Lab Results x24hrs 10/08/24 10/08/24 10/08/24 Range/Units 11:12 07:20 04:42 WBC 9.2 (4.8-10.8) x10^3/uL RBC 2.69 L (4.70-6.10) 10^6/uL Hgb 8.8 L (14.0-18.0) g/dL Hct 27.5 L (42.0-52.0) % MCV 102.2 H (80.0-94.0) fL MCH 32.7 H (27.0-31.0) pg MCHC 32.0 (32.0-36.0) g/dL RDW 16.1 H (12.0-15.0) % Plt Count 185 (130-450) 10^3/uL MPV 9.5 (7.4-11.4) fL Neut # (Auto) 6.8 H (1.5-6.6) 10^3/uL Lymph # (Auto) 0.6 L (1.5-3.5) 10^3/uL [place] # (Auto) 1.4 H (0.0-1.0) 10^3/uL Eos # (Auto) 0.3 (0.0-0.7) 10^3/uL Baso # (Auto) 0.0 (0.0-0.1) 10^3/uL Absolute Nucleated RBC 0.00 x10^3/uL Nucleated RBC % 0.0 /100WBC Sodium 133 L (135-145) mmol/L Potassium 4.0 (3.5-4.5) mmol/L Chloride 104 (101-111) mmol/L Carbon Dioxide 19 L (21-32) mmol/L Anion Gap 10.0 (6-13) BUN 65 H (6-20) mg/dL Creatinine 2.5 H (0.6-1.3) mg/dL Estimated GFR (MDRD) 24 L (>89) Glucose 223 H (74-104) mg/dL POC Whole Bld Glucose 208 206 (70-100) mg/dL Calcium 8.3 L (8.5-10.3) mg/dL Folate 9.3 (5.90 - >24.8) ng/mL 10/07/24 10/07/24 Range/Units 20:58 16:41 WBC (4.8-10.8) x10^3/uL RBC (4.70-6.10) 10^6/uL Hgb (14.0-18.0) g/dL Hct (42.0-52.0) % MCV (80.0-94.0) fL MCH (27.0-31.0) pg MCHC (32.0-36.0) g/dL RDW (12.0-15.0) % Plt Count (130-450) 10^3/uL MPV (7.4-11.4) fL Neut # (Auto) (1.5-6.6) 10^3/uL Lymph # (Auto) (1.5-3.5) 10^3/uL [place] # (Auto) (0.0-1.0) 10^3/uL Eos # (Auto) (0.0-0.7) 10^3/uL Baso # (Auto) (0.0-0.1) 10^3/uL Absolute Nucleated RBC x10^3/uL Nucleated RBC % /100WBC Sodium (135-145) mmol/L Potassium (3.5-4.5) mmol/L Chloride (101-111) mmol/L Carbon Dioxide (21-32) mmol/L Anion Gap (6-13) BUN (6-20) mg/dL Creatinine (0.6-1.3) mg/dL Estimated GFR (MDRD) (>89) Glucose (74-104) mg/dL POC Whole Bld Glucose 220 157 (70-100) mg/dL Calcium (8.5-10.3) mg/dL Folate (5.90 - >24.8) ng/mL Assessment/Plan Problem List (1) Cardiomyopathy: Impression: He has been having intermittent dyspnea, typically with activity. He is beginning to develop Rales. Chest x-ray with no significant change since admit, but he is significantly up on his volume status. He has history of cardiomyopathy with AV pacemaker and AICD. 10/07/2024:Wet read on echocardiogram shows severe hypofunction and elevated right-sided pressures. I am going to give him a 40 mg Lasix push on top of the torsemide that started back today. 10/08/2024: We have been having some difficulty in measuring his urine output, so I am unable to determine his diuresis effect. Patient reports feeling a little bit better today, but still dyspneic with exertion. I have escalated him to Lasix 40 mg IV twice daily. Continue strict I's/O, 1500 mL fluid restriction. Will be medically clear tomorrow for discharge to SNF (2) Syncope: Impression: He had another episode of this today when attempting to move to chair This event was described as more of a blank stare and inability to get the patient's attention Patient has no recollection of this and no prodrome This is concerning for absence seizure, but he has no postictal symptoms Check orthostatic vital signs Check echo Consider outpatient referral to neurology PT/OT to determine safe discharge 10/05/2024: Continues to have wildly varying blood pressures. His kidney function is worse today with a creatinine of 2.8. I gave him IV fluid bolus prior to physical therapy eval. Their recommendations are to follow. He did have a hyponatremia today at 129. Ordered repeat BMP to ensure resolution of hyponatremia after NS bolus. 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 Will continue IV hydration and reevaluate him with physical therapy tomorrow. Will likely need facility placement 10/06/2024: Did much better with physical therapy today. His creatinine has stabilized. He still has widely varying blood pressures that do not seem to be related to position. I am decreasing his metoprolol from 100 mg p.o. twice daily to 25 mg p.o. daily. Due to dyspnea as described below, I have discontinued his IV fluids 10/07/2024: Continues to do well with physical therapy. No more episodes of syncope versus absence seizure. Still needs SNF at discharge (3) GI bleed: Impression: Surgery following Continue to trend hemoglobins Last hemoglobin 8 Transfuse to keep hemoglobin above 8 given his history of significant cardiac disease IV Protonix twice daily Carafate Iron studies show a deficiency. I have ordered IV Ferrlecit. He will need to discharge on oral iron 10/05/2024: Hemoglobin stable at 8.1. Continue to monitor 10/06/2024: Hemoglobin up to 8.5 this afternoon. Continue oral iron (4) Diabetes: Impression: His insulin had previously been stopped because of persistent hypoglycemia. Glucose has been elevated over the past day, restarting 10 unit Lantus at night
[2024-10-08] MEDS: FUROSEMIDE 40 MG/4 ML VIAL IVP SCH (16:29)
--- NOTE | 2024-10-08 19:20 | Discharge Summary ---
Discharge Summary Admit Date: 10/03/24 Discharge Date: 10/09/24 Discharging Provider: Law Lopes Primary Care Provider: Simone Maldonado Code Status: Attempt Resuscitation DIAGNOSES Admission Diagnoses: Syncope GI bleed Discharge Diagnoses with Status of Each Condition: Cardiomyopathychronic, responding well to diuresis Syncoperesolved GI bleedresolved Diabeteschronic HPI History of Present Illness: 89-year-old male PMH significant for CABG, [place] AICD, insulin-dependent diabetes, BPH who started on tamsulosin 1 week ago. He has had several episodes of dizziness with falls. Yesterday, hit the back of his head and his low back. He denies fever, chills, chest pain, shortness of breath, nausea and vomiting. He does report dark stools. He also had an episode of syncope after shower today that lasted 10 seconds. In the ER, his pacemaker was interrogated without abnormality. Troponin elevated at 30.4, repeat 30.6. BNP is mildly elevated from November of last year. Creatinine is 2.4, it was 2.2 last November. Sodium 133, potassium 5.3. His hemoglobin is 8.2, which is a noticeable drop from the 10.6 from last November. Repeat hemoglobin remained consistent at 8.2. Surgery was contacted out of concern for GI bleed, who recommended overnight observation for continued trending of hemoglobins and transfusion if necessary. Hospitalist was contacted for observation HOSPITAL COURSE Hospital Course: Patient was brought into the hospital and syncope workup was initiated. Echocardiogram was delayed due to lack of availability, but did show EF 35%, severe tricuspid regurgitation, severe elevations of pulmonary artery systolic pressures. He was initially on IV fluids when he came in. This was discontinued after seeing echo results and aggressive diuresis was started. He had 1 episode of altered mentation since being placed in observation. This was described to me as more of a absence seizure type presentation. He stood up, and he has no memory of standing completely still in place with eyes fixed forward. He did not recognize his at bedside. He does not report any dizziness or feeling faint because he has no memory of the episode at all. He had widely varying blood pressures while in the hospital, so his metoprolol dose was decreased from 100 mg twice daily to 25 mg daily. He was evaluated by physical therapy, who recommended that he be placed in [place] [facility]. ALLERGIES Allergies Allergy/AdvReac Type Severity Reaction Status Date / Time ivp dye Allergy Intermediate Rash Uncoded 12/29/12 01:19 MEDICATIONS Ambulatory Orders Medication Instructions Recorded Confirmed aspirin 81 mg tablet,delayed 81 mg PO DAILY 12/29/12 0 10/03/24 release simvastatin 40 mg tablet 40 mg PO QPM 12/29/12 torsemide 20 mg tablet 20 mg PO DAILY 10/03/2409/12 ferrous sulfate 325 mg (65 mg 325 mg PO BIDWM 30 days #60 tabs 10/08/24 iron) tablet insulin glargine 100 unit/mL (3 10 unit (0.1 mL) subcu t QPM #3 mL 10/08/24 10/03/24 mL) subcutaneous pen (Lantus Solostar U-100 Insulin) metoprolol succinate 100 mg 25 mg (1/4 x 100 mg) PO DA DYLON #30 10/08/24 10/03/24 tablet,extended release 24 hr tabs vit,calcium 27-ferrous 1 tab PO DAILYWM 30 da ys #30 tabs 10/08/24 fum 60 mg iron-folic acid 1 mg tablet (Trinatal Rx 1) sucralfate 100 mg/mL oral 1 g (10 mL) PO 0700,1100,160 0,2200 10/08/24 suspension 30 days #1,200 mL PHYSICAL EXAM AT DISCHARGE Vital Signs: Vital Signs x48h Temp Pulse Resp BP Pulse Ox 10/09/24 13:10 37 C 78 16 112/50 L 95 General Appearance: positive No acute distress and Alert Eyes Bilateral: positive Normal inspection ENT: positive ENT inspection nml Neck: positive Nml inspection Respiratory: positive Chest non-tender Cardiovascular: positive Irregularly irregular Peripheral Pulses: positive 2+ Abdomen: positive Non-tender Back: positive Nml inspection Skin: positive Color nml Extremities: positive Non-tender Neurologic/Psychiatric: positive Oriented x3 LABS 10/09/24 05:11 10/09/24 05:11 FOLLOW UP Follow Up: With PCP TIME SPENT Time Spent in Discharge (Minutes): 35 Discharge Plan Discharge Patient Disposition: DC/Xfer Condition: Stable Prescriptions: New ferrous sulfate 325 mg (65 mg iron) Tablet 325 mg PO BIDWM 30 Days Qty: 60 0RF Trinatal Rx 1 60 mg iron-1 mg Tablet 1 tab PO DAILYWM 30 Days Qty: 30 0RF sucralfate 100 mg/mL Suspension 1 g PO 0700,1100,1600,2200 30 Days Qty: 1200 0RF Continued simvastatin 40 MG tablet 40 mg PO QPM aspirin 81 MG tablet,delayed release (DR/EC) 81 mg PO DAILY torsemide 20 mg tablet 20 mg PO DAILY Changed metoprolol succinate 100 mg tablet extended release 24 hr 25 mg PO DAILY Qty: 30 0RF insulin glargine [Lantus Solostar U-100 Insulin] 100 unit/mL (3 mL) insulin pen 10 unit SUBCUT QPM Qty: 3 0RF Discontinued tamsulosin [Flomax] 0.4 mg capsule 0.4 mg PO DAILY Activity Restrictions: No Restrictions Diet: Cardiac Health Concerns: You came into the hospital because you are having some absence seizure versus syncope episodes. You had one in the hospital, but none since then. He also had a GI bleed which has resolved without aggressive intervention. I would like for you to continue iron supplementation as well as Carafate and Protonix to help your stomach recover. You had some low sugars while in the hospital, so I am decreasing your dose of Lantus to 10 units nightly. Your blood pressure was soft, so I am decreasing your dose of metoprolol to 25 mg daily. Please stop taking Flomax as this may be contributing to your dizziness. I have ordered you a multivitamin, the only reason on doing that specifically is because it has increased amounts of folate which help with blood cell production. Please follow-up with your PCP for further management. While you were here, he started having some shortness of breath which is likely due to the fluid resuscitation we gave you for syncope. I diuresed you aggressively with IV Lasix with good effect. Please resume your home dose torsemide at discharge Print Language: Chinese Patient Instructions: Heart Failure Stand Alone Forms: SNF Discharge, PCP List Follow-up Care: Simone Maldonado MD [Primary Care Provider] -
[2024-10-08] MEDS: SODIUM CHLORIDE FLUSH 0.9% 10 ML SYRINGE IVP PRN (22:28)
[2024-10-08] MEDS: INSULIN GLARGINE-YFGN 300 UNIT/3 ML PEN SUBQ SCH (22:29)
[2024-10-08 23:31] VITALS: O2SAT 95
[2024-10-09 05:27] LABS: BASOPHILS % (AUTO) 0.5 %; EOSINOPHILS # (AUTO) 0.5 10^3/uL (0.0-0.7); EOSINOPHILS % (AUTO) 5.6 %; HCT - HEMATOCRIT 26.4 % (42.0-52.0); HGB - HEMOGLOBIN 8.4 g/dL (14.0-18.0); LYMPHOCYTES # (AUTO) 0.7 10^3/uL (1.5-3.5); LYMPHOCYTES % (AUTO) 8.2 %; MEAN CORPUSCULAR HEMOGLOBIN 32.1 pg (27.0-31.0); MEAN CORPUSCULAR HGB CONC 31.8 g/dL (32.0-36.0); MEAN CORPUSCULAR VOLUME 100.8 fL (80.0-94.0); MEAN PLATELET VOLUME 9.2 fL (7.4-11.4); MONOCYTES # (AUTO) 1.2 10^3/uL (0.0-1.0); MONOCYTES % (AUTO) 14.4 %; NEUTROPHILS # (AUTO) 5.9 10^3/uL (1.5-6.6); NEUTROPHILS % (AUTO) 71.1 %; PLT - PLATELET COUNT 195 10^3/uL (130-450); RED BLOOD COUNT 2.62 10^6/uL (4.70-6.10); RED CELL DISTRIBUTION WIDTH 16.3 % (12.0-15.0); WHITE BLOOD COUNT 8.3 x10^3/uL (4.8-10.8)
[2024-10-09 05:49] LABS: CALCIUM 8.6 mg/dL (8.5-10.3); CREATININE 2.5 mg/dL (0.6-1.3); POTASSIUM 3.7 mmol/L (3.5-4.5)
[2024-10-09 13:12] VITALS: BP 112/50; TEMP 98.6
== END 2024-10-09 13:45 | DRG 315 ==
LOC: MS2 14:24 → ED 14:24 → MS2 20:01
PROVIDERS: ADMIT Nurse Practitioner Acute Care; ATTEND Nurse Practitioner Acute Care
DX: E61.1 Iron deficiency; W19.XXXA Unspecified fall, initial encounter; N32.0 Bladder-neck obstruction; R41.82 Altered mental status, unspecified; S00.83XA Contusion of other part of head, initial encounter; I42.9 Cardiomyopathy, unspecified; D72.829 Elevated white blood cell count, unspecified; E11.22 Type 2 diabetes mellitus with diabetic chronic kidney disease; Z91.81 History of falling; I50.9 Heart failure, unspecified; N17.9 Acute kidney failure, unspecified; N40.0 Benign prostatic hyperplasia without lower urinary tract symptoms; I07.1 Rheumatic tricuspid insufficiency; S20.221A Contusion of right back wall of thorax, initial encounter; N13.8 Other obstructive and reflux uropathy; N40.1 Benign prostatic hyperplasia with lower urinary tract symptoms; D53.9 Nutritional anemia, unspecified; R79.89 Other specified abnormal findings of blood chemistry; N18.9 Chronic kidney disease, unspecified; S20.219A Contusion of unspecified front wall of thorax, initial encounter; Z95.1 Presence of aortocoronary bypass graft; K92.2 Gastrointestinal hemorrhage, unspecified; R55 Syncope and collapse; Z95.810 Presence of automatic (implantable) cardiac defibrillator; J34.9 Unspecified disorder of nose and nasal sinuses; E87.1 Hypo-osmolality and hyponatremia; E11.649 Type 2 diabetes mellitus with hypoglycemia without coma; Z79.4 Long term (current) use of insulin